=== PATIENT | female | born 1990 | race African-American/Black ===

== ENCOUNTER 2016-06-20 12:34 | Emergency (ER) | payer OTHER ==
[~2016-06-20] VITALS: Ht 170.2 cm; Wt 55.0 kg
[~2016-06-20 12:34] MED LIST: IBUP600 PO
[2016-06-20 12:35] VITALS: BP 100/59; PULSE 113; RESP 20; TEMP 97.4; O2SAT 99
== END 2016-06-20 15:01 | disposition left against medical advice (07) ==
LOC: NED 12:34
DX: K92.9 Disease of digestive system, unspecified (principal)
CPT/HCPCS: 99281

== ENCOUNTER 2016-11-18 22:53 | Emergency (ER) | payer OTHER ==
[~2016-11-18] VITALS: Ht 170.2 cm; Wt 55.0 kg
[2016-11-18 22:56] VITALS: BP 97/65; PULSE 105; RESP 16; TEMP 99.7; O2SAT 98
[2016-11-19 00:27] VITALS: BP 94/53; PULSE 92; RESP 18; O2SAT 100
[2016-11-19] MEDS ORDERED: SODIUM CHLOR 0.9% 1000 ML INJ 1,000 ML IV ONE (00:35)
[2016-11-19] MEDS ORDERED: ONDANSETRON HCL 4 MG/2 ML VIAL IVP ONE (00:45)
[2016-11-19] MEDS ORDERED: SODIUM CHLORIDE 0.9% FLUSH 10 ML FLUSH IVF PRN (00:45)
[2016-11-19] MEDS ORDERED: ZOFR4TAB3 SL (01:45)
--- NOTE | 2016-11-19 01:45 | PD ---
HPI . Nausea and vomiting Chief Complaint: GI Complaint Time Seen by Provider: 00:31 Travel History International Travel<30 days: No Contact w/Intl Traveler<30days: No Traveled to known affect area: No History of Present Illness HPI Patient presents with a chief complaint of nausea and vomiting associated with a fever. Onset was just today. No further history was initially available due to patient cooperation. PFSH Past Medical History ADHD: Yes Bipolar Disorder: Yes Depression: Yes Cancer: No Cardiovascular Problems: No Diabetes: No Diminished Hearing: No Psychiatric: Yes Immunizations Current: No Migraines: No Seizures: No Thyroid Disease: No Ulcer: No Tetanus Vaccination: < 5 Years Influenza Vaccination: No ?: Not LMP: 10/14/2016 Menopausal: No : 3 Para: 2 Miscarriage: 1 : 0 Past Surgical History Appendectomy: No Cholecystectomy: No Social History Alcohol Use: No Tobacco Use: No Substance Use: No Allergies-Medications (Allergen,Severity, Reaction): Coded Allergies: No Known Allergies (Verified , 11/19/16) Reported Meds & Prescriptions Reported Meds & Active Scripts Active No Active Prescriptions or Reported Medications Review of Systems ROS Limitations: Uncooperative General / Constitutional: Positive: Fever Gastrointestinal: Positive: Nausea, Vomiting Physical Exam Narrative GENERAL: The patient is lying in the position on her right side speaking in a very soft, whining voice and crying tears. SKIN: Warm and dry. HEAD: Atraumatic. Normocephalic. EYES: Pupils equal and round. Extraocular movements are intact. ENT: No nasal bleeding or discharge. Mucous membranes pink and moist. NECK: Trachea midline. Neck is supple. CARDIOVASCULAR: Regular rate and rhythm. RESPIRATORY: No accessory muscle use. ABDOMEN: Bowel sounds positive. Soft with some diffuse tenderness but no guarding or rebound. MUSCULOSKELETAL: No obvious deformities. No edema. NEUROLOGICAL: Awake and alert. No obvious cranial nerve deficits. Motor grossly within normal limits. Normal speech. PSYCHIATRIC: Inappropriate affect. Data Data Last Documented VS Vital Signs Date Time Temp Pulse Resp B/P Pulse Ox O2 Delivery O2 Flow Rate FiO2 11/19/16 00:27 92 18 94/53 100 Room Air 11/18/16 22:56 99.7 Orders Iv Access Insert/Monitor (11/19/16 00:35) Ondansetron Inj (Zofran Inj) (11/19/16 00:45) Sodium Chlor 0.9% 1000 Ml Inj (Ns 1000 M (11/19/16 00:35) Sodium Chloride 0.9% Flush (Ns Flush) (11/19/16 00:45) Ed Urine Pregnancytest Poc (11/19/16 00:35) [facility] Medical Decision Making Medical Screen Exam Complete: Yes Emergency Medical Condition: Yes Differential Diagnosis Differential diagnosis includes but is not limited to viral gastritis, food poisoning, pancreatitis, pneumonia, hepatitis, acute coronary syndrome, Narrative Course This patient presents with a one-day history of nausea and vomiting. She was initially unable to cooperate for physical exam. A urine test was ordered and was negative. She has been treated with IV fluids and IV antiemetics. Following treatment, the patient feels better. She was then able to cooperate for exam. Her exam was benign. Diagnosis Primary Impression: Nausea and vomiting Qualified Code: R11.2 - Non-intractable vomiting with nausea, unspecified vomiting type Patient Instructions: Acute Nausea and Vomiting (DC), General Instructions Med/Other Pt SpecificInfo: Prescription(s) given Scripts Ondansetron Odt (Zofran Odt)4 Mg Tab4 Mg SL Q6HR PRN (Nausea/Vomiting) #30 TAB Ref 0 Prov:Mirna Luna MD 11/19/16 Disposition: 01 DISCHARGE HOME Condition: Stable Mirna Luna MD Nov 19, 2016 01:45
== END 2016-11-19 02:04 | disposition home or self-care (01) ==
LOC: NEPE 22:53
DX: R11.2 Nausea with vomiting, unspecified (principal)
CPT/HCPCS: 84703; 96361; 96374; 99284; J2405; J7030

== ENCOUNTER 2016-12-23 16:00 | Emergency (ER) | payer OTHER ==
[~2016-12-23 16:00] MED LIST changes: -IBUP600 PO; +ZOFR4TAB3 SL
[2016-12-23 16:01] VITALS: BP 109/74; PULSE 92; RESP 20; TEMP 98.4; O2SAT 100
== END 2016-12-23 18:40 | disposition left against medical advice (07) ==
LOC: NED 16:00
DX: Z53.21 Procedure and treatment not carried out due to patient leaving prior to being seen by health care provider (principal)
CPT/HCPCS: 99281

== ENCOUNTER 2016-12-26 07:56 | Emergency (ER) | payer OTHER ==
[~2016-12-26] VITALS: Ht 170.2 cm; Wt 50.0 kg
[2016-12-26 07:57] VITALS: BP 105/65; PULSE 77; RESP 16; TEMP 98.4; O2SAT 98
--- NOTE | 2016-12-26 08:15 | PD ---
HPI Chief Complaint: Related Problem Time Seen by Provider: 08:15 Travel History International Travel<30 days: No Contact w/Intl Traveler<30days: No Traveled to known affect area: No History of Present Illness HPI 26-year-old female came to the emergency room with history of vaginal bleeding in the form of spotting and some pelvic cramps. Patient found out 1 week ago that she was . Based on her LMP she thinks she is 5 weeks . Patient is A1. She is otherwise a healthy person. Vital signs were stable. Her second lead to a miscarriage at 9 weeks. Patient is a smoker and continues to smoke through this . She has her baby with her who seems to be less than 1-year-old. [facility] Past Medical History Narrative Medical List of her past medical, surgical, social and family history is reviewed from the nursing note. ADHD: Yes Bipolar Disorder: Yes Depression: Yes Cancer: No Cardiovascular Problems: No Diabetes: No Diminished Hearing: No Psychiatric: Yes Immunizations Current: No Migraines: No Seizures: No Thyroid Disease: No Ulcer: No ?: Menopausal: No : 3 Para: 2 Miscarriage: 1 : 0 Past Surgical History Appendectomy: No Cholecystectomy: No Social History Alcohol Use: No Tobacco Use: No Substance Use: No Allergies-Medications (Allergen,Severity, Reaction): Coded Allergies: No Known Allergies (Verified , 12/29/16) Comments No known drug allergies. Reported Meds & Prescriptions Reported Meds & Active Scripts Active Vitamins 0.8 mg ( Multivit-Min W/Fe-FA) 1 Tab Tab 1 Tab PO DAILY Narrative Medication List of her home medications reviewed from the nursing note. Review of Systems Except as stated in HPI: all other systems reviewed are Neg Physical Exam Narrative GENERAL: Awake, alert, no obvious distress SKIN: Focused skin assessment warm/dry. HEAD: Atraumatic. Normocephalic. EYES: Pupils equal and round. No scleral icterus. No injection or drainage. ENT: No nasal bleeding or discharge. Mucous membranes pink and moist. NECK: Trachea midline. No JVD. CARDIOVASCULAR: Regular rate and rhythm. No murmur appreciated. RESPIRATORY: No accessory muscle use. Clear to auscultation. Breath sounds equal bilaterally. GASTROINTESTINAL: Abdomen soft, non-tender, nondistended. Hepatic and splenic margins not palpable. MUSCULOSKELETAL: No obvious deformities. No clubbing. No cyanosis. No edema. NEUROLOGICAL: Awake and alert. No obvious cranial nerve deficits. Motor grossly within normal limits. Normal speech. PSYCHIATRIC: Appropriate mood and affect; insight and judgment normal. Data Data Last Documented VS Orders Orders Beta Hcg (Quant/Titer) (12/26/16 08:20) Complete Blood Count With Diff (12/26/16 08:20) Basic Metabolic Panel (Bmp) (12/26/16 08:20) Type And Screen (12/26/16 08:20) Urinalysis - C+S If Indicated (12/26/16 08:20) Ed Urine Pregnancytest Poc (12/26/16 08:20) Ed Poc Ultrasound (12/26/16 08:20) Us Pelvis (Ques Pr/Ect)W Trans (12/26/16 ) Labs Laboratory Tests Test 12/26/16 08:30 White Blood Count 4.7 TH/MM3 Red Blood Count 4.44 MIL/MM3 Hemoglobin 13.1 GM/DL Hematocrit 39.8 % Mean Corpuscular Volume 89.6 FL Mean Corpuscular Hemoglobin 29.5 PG Mean Corpuscular Hemoglobin Concent 32.9 % Red Cell Distribution Width 14.5 % Platelet Count 247 TH/MM3 Mean Platelet Volume 8.2 FL Neutrophils (%) (Auto) 44.6 % Lymphocytes (%) (Auto) 42.5 % Monocytes (%) (Auto) 11.5 % Eosinophils (%) (Auto) 0.7 % Basophils (%) (Auto) 0.7 % Neutrophils # (Auto) 2.1 TH/MM3 Lymphocytes # (Auto) 2.0 TH/MM3 Monocytes # (Auto) 0.5 TH/MM3 Eosinophils # (Auto) 0.0 TH/MM3 Basophils # (Auto) 0.0 TH/MM3 CBC Comment DIFF FINAL Differential Comment Urine Color YELLOW Urine Turbidity CLEAR Urine pH 6.0 Urine Specific [place] 1.025 Urine Protein TRACE mg/dL Urine Glucose (UA) NEG mg/dL Urine Ketones TRACE mg/dL Urine Occult Blood MOD Urine Nitrite NEG Urine Bilirubin NEG Urine Urobilinogen LESS THAN 2.0 MG/DL Urine Leukocyte Esterase NEG Urine RBC 84 /hpf Urine WBC 4 /hpf Urine Squamous Epithelial Cells 4 /hpf Urine Bacteria RARE /hpf Urine Mucus FEW /lpf Microscopic Urinalysis Comment CULT NOT INDICATED Blood Urea Nitrogen 10 MG/DL Creatinine 0.74 MG/DL Random Glucose 77 MG/DL Calcium Level 8.6 MG/DL Sodium Level 137 MEQ/L Potassium Level 3.8 MEQ/L Chloride Level 106 MEQ/L Carbon Dioxide Level 24.8 MEQ/L Anion Gap 6 MEQ/L Estimat Glomerular Filtration Rate 116 ML/MIN Human Chorionic Gonadotropin, Quant 2107 MIU/ML MDM Medical Decision Making Medical Screen Exam Complete: Yes Emergency Medical Condition: Yes Medical Record Reviewed: Yes Differential Diagnosis Threatened , ectopic , implantation bleed Narrative Course 9:47 AM blood test results are within acceptable limits. Rh is positive. Beta hCG was little over 2100. I could not see a fetus or a gestational sac on my bedside ultrasound. Please refer to my procedure note. Awaiting for a formal ultrasound to be done to rule out ectopic and establish intrauterine . 12:06 PM still waiting for the ultrasound to be read. Procedures Procedure Narrative Emergency Department Pelvic ultrasound was performed with patient consent. The curvilinear probe was used in the transverse and sagittal views within the suprapubic region revealing no intrauterine . EKG Prior to Arrival: No Diagnosis Primary Impression: Threatened Referrals: Elisabeth Alexander MD 2 days Additional Instructions: Please call the OB was name and number been provided to you to get an appointment. You need a repeat blood test done in 48 hours to find out the beta hCG level. If they can see her in 48 hours into the test then please get it done through your OB. Otherwise he can come back to the emergency room and get the test done here. No intercourse, no douching, no tampon or anything in the vagina till the bleeding stops. Med/Other Pt SpecificInfo: No Change to Meds Scripts Multivit-Min W/Fe-FA ( Vitamins 0.8 mg) 1 Tab Tab 1 TAB PO DAILY, #30 Prov: Keri Harris MD 12/26/16 Disposition: 01 DISCHARGE HOME Condition: Stable Keri Harris MD Dec 26, 2016 08:15
[2016-12-26 08:52] LABS: AUTOMATED NEUTROPHIL # 2.1 TH/MM3 (1.8-7.7); BASOPHIL % 0.7 % (0.0-2.0); EOSINOPHIL % 0.7 % (0.0-4.0); HEMATOCRIT 39.8 % (35.0-46.0); HEMO FLAGS DIFF FINAL; LYMPH % 42.5 % (9.0-44.0); MEAN CELL VOLUME 89.6 FL (80.0-100.0); MEAN CORPUSCULAR HEMOGLOBIN 29.5 PG (27.0-34.0); MEAN CORPUSCULAR HGB CONC 32.9 % (32.0-36.0); MONO % 11.5 % (0.0-8.0); NEUT % 44.6 % (16.0-70.0); PLATELET COUNT 247 TH/MM3 (150-450); RED BLOOD COUNT 4.44 MIL/MM3 (4.00-5.30); RED CELL DISTRIBUTION WIDTH 14.5 % (11.6-17.2); WHITE BLOOD COUNT 4.7 TH/MM3 (4.0-11.0)
[2016-12-26 08:59] LABS: BACTERIA, URINE RARE /hpf; BLOOD, URINE MOD (NEG); COMMENT (UR) CULT NOT INDICATED; CULTURE IF INDICATED CULT NOT INDICATED; GLUCOSE,URINE NEG (NEG); KETONE, URINE TRACE mg/dL (NEG); MUCUS URINE FEW /lpf (OCC); NITRITE,URINE NEG (NEG); SQUAMOUS EPITHELIAL CELL URINE 4 /hpf (0-5); URINE COLOR YELLOW (YELLW/STRAW)
[2016-12-26 09:21] LABS: BICARBONATE 24.8 MEQ/L (21.0-32.0)
[2016-12-26 09:25] LABS: POTASSIUM 3.8 MEQ/L (3.5-5.1)
[2016-12-26] MEDS ORDERED: PREN1TAB63 PO (12:31)
--- NOTE | 2016-12-26 13:04 | RADRPT ---
EXAM DATE/TIME: 12/26/2016 10:40 [facility] COMPARISON: CT ABDOMEN & PELVIS W/O CONTRAST, December 01, 2014, 23:06. INDICATIONS : Pelvic pain and bleeding. LAB(S): Beta-hC MEDICAL HISTORY : . ADHD. Bipolar disorder. Schizophrenic. Depression. Tobacco use. SURGICAL HISTORY : None. ENCOUNTER: Initial ACUITY: 1 day PAIN SCORE: 3/10 LOCATION: Left pelvis. MEASUREMENTS: UTERUS: 9.5 x 7.8 x 4.7 cm ENDOMETRIAL STRIPE: 10 mm RIGHT OVARY: 3.2 x 2.4 x 1.5 cm LEFT OVARY: 5.2 x 3.7 x 3.2 cm FREE FLUID: Yes FINDINGS: UTERUS: 4-5 mm anechoic area in the endometrial cavity may be early gestational sac, too early for dates mery mates. RIGHT OVARY: Ovary contains no mass or significant cystic lesion. LEFT OVARY: 3.7 cm hyperechoic mass in the left ovary consistent with known dermoid MISCELLANEOUS: Small volume of free fluid. CONCLUSION: Tiny anechoic area in the endometrium Hadley Armstrong MD on December 26, 2016 at 12:58 Board Certified Radiologist. This report was verified electronically.
== END 2016-12-26 12:44 | disposition home or self-care (01) ==
LOC: NEPE 07:56
DX: O20.0 Threatened abortion (principal)
CPT/HCPCS: 76700; 76817; 80048; 81001; 84702; 84703; 85025; 86850; 86900; 86901

== ENCOUNTER 2016-12-29 12:26 | Emergency (ER) | payer OTHER ==
[~2016-12-29] VITALS: Ht 170.2 cm; Wt 48.0 kg
[~2016-12-29 12:26] MED LIST changes: +PREN1TAB63 PO; -ZOFR4TAB3 SL
[2016-12-29 12:29] VITALS: BP 98/50; PULSE 70; RESP 18; TEMP 98.7; O2SAT 99
--- NOTE | 2016-12-29 13:26 | PD ---
HPI Chief Complaint: Related Problem Time Seen by Provider: 13:15 Travel History International Travel<30 days: No Contact w/Intl Traveler<30days: No Traveled to known affect area: No History of Present Illness HPI 26-year-old female presents emergency department for hCG recheck. She was seen here 2 days ago and was told to follow up with OB or come back to emergency department after 48 hours of being seen. She says her abdominal cramping and vaginal bleeding stopped 2 days ago after she was seen. Denies fever, vomiting. Denies chest pain, shortness of breath, lightheadedness, dizziness. Symptoms are mild in severity. She has no other medical complaints. Has not taken any medications or tried any traumas to alleviate her symptoms. No known relieving or aggravating factors. Call to make an appointment with Dr. Alexander but was told to call back after her Medicaid was approved. No known allergies. No other modifying factors or associated signs and symptoms. PFSH Past Medical History ADHD: Yes Bipolar Disorder: Yes Depression: Yes Cancer: No Cardiovascular Problems: No Diabetes: No Diminished Hearing: No Psychiatric: Yes Immunizations Current: No Migraines: No Seizures: No Thyroid Disease: No Ulcer: No ?: Menopausal: No : 3 Para: 2 Miscarriage: 1 : 0 Past Surgical History Appendectomy: No Cholecystectomy: No Social History Alcohol Use: No Tobacco Use: Yes Substance Use: No Allergies-Medications (Allergen,Severity, Reaction): Coded Allergies: No Known Allergies (Verified , 12/29/16) Reported Meds & Prescriptions Reported Meds & Active Scripts Active Vitamins 0.8 mg ( Multivit-Min W/Fe-FA) 1 Tab Tab 1 Tab PO DAILY Review of Systems Except as stated in HPI: all other systems reviewed are Neg Physical Exam Narrative GENERAL: Well-nourished, well-developed black female patient, in no acute distress SKIN: Warm and dry. HEAD: Atraumatic. Normocephalic. EYES: Pupils equal and round. No scleral icterus. No injection or drainage. ENT: Mucosa pink and moist. Airway patent. NECK: Trachea midline. CARDIOVASCULAR: Regular rate and rhythm. No murmur appreciated. RESPIRATORY: No accessory muscle use. Clear to auscultation. Breath sounds equal bilaterally. GASTROINTESTINAL: Abdomen soft, non-tender, nondistended. Hepatic and splenic margins not palpable. Bowel sounds are active 4 quadrants. MUSCULOSKELETAL: No obvious deformities. No clubbing. No cyanosis. No edema. NEUROLOGICAL: Awake and alert. Oriented 3. No obvious cranial nerve deficits. Motor grossly within normal limits. Normal speech. PSYCHIATRIC: Appropriate mood and affect; insight and judgment normal. Data Data Last Documented VS Vital Signs Date Time Temp Pulse Resp B/P (MAP) Pulse Ox O2 Delivery O2 Flow Rate FiO2 12/29/16 12:29 98.7 70 18 98/50 (66) 99 Room Air Orders Orders Beta Hcg (Quant/Titer) (12/29/16 13:19) Labs Laboratory Tests Test 12/29/16 13:35 Human Chorionic Gonadotropin, Quant 2437 MIU/ML MDM Medical Decision Making Medical Screen Exam Complete: Yes Emergency Medical Condition: Yes Medical Record Reviewed: Yes Differential Diagnosis Medical clearance, , elevated hCG, decreased hCG, threatened miscarriage Narrative Course This is a 26-year-old female that was seen 2 days ago on December 26 with ultrasound they verified a 4-5 mm anechoic area in the endometrium of the uterus and was told to return in 48 hours for repeat hCG. Her hCG level on December 26 was 2107. Denies continued abdominal cramping or bleeding. Beta hCG ordered. 1425: HCG 2437. Instructed Patient to follow up with storekeeper helper. Instructed patient to follow up with primary care provider. Patient verbalizes understanding and agreement with treatment plan. Patient is medically cleared and stable for discharge. Discussed reasons to return to the emergency department. Patient agrees with treatment plan. The patients vital signs are stable and the patient is stable for outpatient follow-up and treatment. Patient discharged home, stable and in no acute distress. Diagnosis Primary Impression: Elevated serum hCG Referrals: Elisabeth Alexander MD [employer] Machine Operator Primary Care Physician Patient Instructions: First Trimester (ED), General Instructions, Threatened Miscarriage (ED) Departure Forms: Tests/Procedures, Work Release Enter return to work date: Dec 30, 2016 Additional Instructions: Follow-up with primary care provider Follow-up with storekeeper helper Return to the emergency department immediately if worsening of symptoms Med/Other Pt SpecificInfo: No Meds Exist/No RX given Disposition: 01 DISCHARGE HOME Condition: Stable Jaqueline Juan Dec 29, 2016 13:26
[2016-12-29 14:19] LABS: BETA HCG QUANT 2437 MIU/ML (0-5)
== END 2016-12-29 14:53 | disposition home or self-care (01) ==
LOC: NEPD 12:26
DX: Z32.01 Encounter for pregnancy test, result positive (principal); O99.341 Other mental disorders complicating pregnancy, first trimester; F31.9 Bipolar disorder, unspecified; F90.9 Attention-deficit hyperactivity disorder, unspecified type; Z72.0 Tobacco use; Z34.91 Encounter for supervision of normal pregnancy, unspecified, first trimester
CPT/HCPCS: 84702; 99281

== ENCOUNTER 2016-12-30 11:57 | Emergency (ER) | payer OTHER ==
[~2016-12-30] VITALS: Ht 170.2 cm; Wt 50.0 kg
[2016-12-30 12:00] VITALS: BP 117/77; PULSE 89; RESP 16; TEMP 98.4; O2SAT 99
--- NOTE | 2016-12-30 12:06 | PD ---
Physical Exam Date Seen by Provider: Dec 30, 2016 Time Seen by Provider: 12:05 Data Data Last Documented VS Vital Signs Date Time Temp Pulse Resp B/P (MAP) Pulse Ox O2 Delivery O2 Flow Rate FiO2 12/30/16 12:00 98.4 89 16 117/77 (90) 99 MDM Supervised Visit with MONSE: No Narrative Course 26-year-old 6 week (by dates) female presents to the ED for evaluation of "vaginal bleeding, like I have a period." Onset 20 minutes ago. Denies abdominal or vaginal pain. Vitals reviewed. Patient seen in triage, awaiting bed placement. Katelin Veloz Dec 30, 2016 12:06
--- NOTE | 2016-12-30 12:40 | PD ---
HPI Chief Complaint: Related Problem Time Seen by Provider: 12:25 Travel History International Travel<30 days: No Contact w/Intl Traveler<30days: No Traveled to known affect area: No History of Present Illness HPI The patient was seen and examined in the presence of the nurse. This patient complains of vaginal bleeding. Patient is not having any pelvic pain. No presyncopal symptoms. She is and was here 4 days ago with a titer of 2100 and ultrasound that showed a tiny 4-5 mm anechoic area which could be an early gestational sac but not definitive. She returned yesterday for a scheduled repeat beta titer which was 2400. So it increased but certainly didn' t double. She has not had her Medicaid approved yet so couldn't follow up with anyone. She called Dr. Reese her prior [employer] but was told to call back when her Medicaid is improved. In terms of no alleviating factors. Symptoms of no exacerbating factors. Duration of bleeding is one day. She was not bleeding when she was here yesterday. PFSH Past Medical History ADHD: Yes Bipolar Disorder: Yes Depression: Yes Cancer: No Cardiovascular Problems: No Diabetes: No Diminished Hearing: No Psychiatric: Yes Immunizations Current: No Migraines: No Seizures: No Thyroid Disease: No Ulcer: No ?: LMP: 11/22/16 Menopausal: No : 3 Para: 2 Miscarriage: 1 : 0 Past Surgical History Appendectomy: No Cholecystectomy: No Social History Alcohol Use: No Tobacco Use: Yes Substance Use: No Allergies-Medications (Allergen,Severity, Reaction): Coded Allergies: No Known Allergies (Verified , 12/29/16) Reported Meds & Prescriptions Reported Meds & Active Scripts Active Vitamins 0.8 mg ( Multivit-Min W/Fe-FA) 1 Tab Tab 1 Tab PO DAILY Review of Systems General / Constitutional: No: Fever Eyes: No: Visual changes HENT: No: Headaches Cardiovascular: No: Chest Pain or Discomfort Respiratory: No: Shortness of Breath Gastrointestinal: No: Abdominal Pain Genitourinary: Positive: Vaginal Bleeding, No: Dysuria Musculoskeletal: No: Pain Skin: No Rash Neurologic: No: Weakness Psychiatric: No: Depression Endocrine: No: Polydipsia Hematologic/Lymphatic: No: Easy Bruising Physical Exam Narrative GENERAL: Well-nourished, well-developed patient in no apparent distress. SKIN: Focused skin assessment reveals no rash and nodules. Skin is Warm and dry. HEAD: Atraumatic. Normocephalic. EYES: Pupils equal and round. No scleral icterus. No injection or drainage. ENT: No nasal bleeding or discharge. Mucous membranes pink and moist. NECK: Trachea midline. No JVD. CARDIOVASCULAR: Regular rate and rhythm. No murmur appreciated. RESPIRATORY: No accessory muscle use. Clear to auscultation. Breath sounds equal bilaterally. GASTROINTESTINAL: Abdomen soft, non-tender, nondistended. Hepatic and splenic margins not palpable. MUSCULOSKELETAL: No obvious deformities. No clubbing. No cyanosis. No edema. NEUROLOGICAL: Awake and alert. No obvious cranial nerve deficits. Motor grossly within normal limits. Normal speech. PSYCHIATRIC: Appropriate mood and affect; insight and judgment normal. Pelvic: Cervix is closed with no motion tenderness. Uterus does not seem enlarged. Scant blood in the vault. No adnexal tenderness Data Data Last Documented VS Vital Signs Date Time Temp Pulse Resp B/P (MAP) Pulse Ox O2 Delivery O2 Flow Rate FiO2 12/30/16 12:00 98.4 89 16 117/77 (90) 99 Orders Orders Beta Hcg (Quant/Titer) (12/30/16 12:36) Complete Blood Count With Diff (12/30/16 12:36) Iv Access Insert/Monitor (12/30/16 12:36) Labs Laboratory Tests Test 12/30/16 12:41 White Blood Count 4.2 TH/MM3 Red Blood Count 3.93 MIL/MM3 Hemoglobin 11.7 GM/DL Hematocrit 35.2 % Mean Corpuscular Volume 89.6 FL Mean Corpuscular Hemoglobin 29.8 PG Mean Corpuscular Hemoglobin Concent 33.2 % Red Cell Distribution Width 14.2 % Platelet Count 230 TH/MM3 Mean Platelet Volume 8.2 FL Neutrophils (%) (Auto) 40.9 % Lymphocytes (%) (Auto) 47.9 % Monocytes (%) (Auto) 9.7 % Eosinophils (%) (Auto) 1.0 % Basophils (%) (Auto) 0.5 % Neutrophils # (Auto) 1.7 TH/MM3 Lymphocytes # (Auto) 2.0 TH/MM3 Monocytes # (Auto) 0.4 TH/MM3 Eosinophils # (Auto) 0.0 TH/MM3 Basophils # (Auto) 0.0 TH/MM3 CBC Comment DIFF FINAL Differential Comment Human Chorionic Gonadotropin, Quant 2858 MIU/ML MDM Medical Decision Making Medical Screen Exam Complete: Yes Emergency Medical Condition: Yes Medical Record Reviewed: Yes Differential Diagnosis Spontaneous miscarriage, ectopic , dysfunctional uterine bleeding Narrative Course I have reviewed the patient's electronic medical record. As noted in the history of present illness, I have reviewed the previous studies from the last 2 visits IV placed CBC is normal Beta hCG is 2850, up from yesterday's 2400 Patient is asymptomatic Had a lengthy discussion with her and mother at bedside. Couldn't formally rule out ectopic but seems unlikely given that continually rising beta. She has no pelvic pain at all. She does have menstrual periods strength bleeding. May have spontaneous miscarriage. She develops pelvic pain she should return. I don't think repeating ultrasound a couple days later we'll show much different. She may need another one in a week or so however. She does have an OB appointment she tells me January 04 which is in 1 week We discussed pelvic rest Diagnosis Primary Impression: Vaginal bleeding in patient at less than 20 weeks gestation Additional Impression: Threatened Additional Instructions: The patient was advised to follow up with their physician and return if they worsen. Use pelvic rest measures Return for significant pelvic pain Med/Other Pt SpecificInfo: Other Disposition: DISCHARGE HOME Condition: Stable Rey Gaston MD Dec 30, 2016 12:40
[2016-12-30 13:01] LABS: AUTOMATED NEUTROPHIL # 1.7 TH/MM3 (1.8-7.7); BASOPHIL % 0.5 % (0.0-2.0); HEMATOCRIT 35.2 % (35.0-46.0); HEMO FLAGS DIFF FINAL; LYMPH % 47.9 % (9.0-44.0); MEAN CELL VOLUME 89.6 FL (80.0-100.0); MEAN CORPUSCULAR HEMOGLOBIN 29.8 PG (27.0-34.0); MEAN CORPUSCULAR HGB CONC 33.2 % (32.0-36.0); MONO % 9.7 % (0.0-8.0); NEUT % 40.9 % (16.0-70.0); PLATELET COUNT 230 TH/MM3 (150-450); RED BLOOD COUNT 3.93 MIL/MM3 (4.00-5.30); RED CELL DISTRIBUTION WIDTH 14.2 % (11.6-17.2); WHITE BLOOD COUNT 4.2 TH/MM3 (4.0-11.0)
[2016-12-30 13:32] LABS: BETA HCG QUANT 2858 MIU/ML (0-5)
== END 2016-12-30 14:09 | disposition home or self-care (01) ==
LOC: NEPD 11:57
DX: O46.91 Antepartum hemorrhage, unspecified, first trimester (principal); O20.0 Threatened abortion; O99.340 Other mental disorders complicating pregnancy, unspecified trimester; F90.9 Attention-deficit hyperactivity disorder, unspecified type; F31.9 Bipolar disorder, unspecified; O99.331 Smoking (tobacco) complicating pregnancy, first trimester
CPT/HCPCS: 84702; 85025; 99283

== ENCOUNTER 2017-06-07 18:06 | Observation (INO) | payer MEDICAID, OTHER ==
[~2017-06-07] VITALS: Ht 170.2 cm; Wt 49.0 kg
[2017-06-07] VITALS (9 sets, daily range): BP systolic 78–132; BP diastolic 42–82; PULSE 113–134; RESP 18–20; TEMP 98–98.8; O2SAT 98–100
[~2017-06-07 18:06] MED LIST changes: +LACTATED RINGER'S 1000 ML INJ 2,000 ML IV ONE; +LIDOCAINE HCL 1% PF 5 ML SYRINGE OTHER ONE; +OXYC1TAB63 PO; +PHENYLEPH/NS 1000 MCG/10 ML SYR IV ONE; +PHENYLEPHRINE HCL 10 MG/ML VIAL IV ONE; -PREN1TAB63 PO; +PROPOFOL 200 MG/20 ML AMP IV ONE; +ROCURONIUM INJ 50 MG/5 ML SYRINGE IV PUSH ONE; +SODIUM CHLOR 0.9% 250 ML INJ 250 ML IV ONE; +SODIUM CHLORIDE 0.9% 20 ML VIAL IV ONE; +STERILE WATER FOR INJECTION 20 ML VIAL IV ONE; +SUCCINYLCHOLINE CHLORIDE 200 MG/10 ML VIAL IV ONE; +ceFAZolin INJ 1,000 MG VIAL IV ONE
[2017-06-07] MEDS ORDERED: SODIUM CHLOR 0.9% 1000 ML INJ 1,000 ML IV SCH (18:25)
[2017-06-07] MEDS ORDERED: SODIUM CHLORIDE 0.9% FLUSH 10 ML FLUSH IVF PRN (18:30)
[2017-06-07] MEDS ORDERED: ONDANSETRON HCL 4 MG/2 ML VIAL IVP ONE (18:30)
--- NOTE | 2017-06-07 18:37 | PD ---
HPI Chief Complaint: General Weakness Time Seen by Provider: 18:23 Travel History International Travel<30 days: No Contact w/Intl Traveler<30days: No Traveled to known affect area: No History of Present Illness HPI 26-year-old -[place] female stated to be 7 weeks , is brought in with her with generalized weakness. Patient is a very poor historian , and appears somewhat delirious and dehydrated. It is reported the patient has not been eating or drinking today. She had vomiting this morning. Patient describes some generalized abdominal pain but nothing specific. History is very limited due to the patient's condition. Patient is asking for something to drink. She has no known drug allergies. PFSH Past Medical History ADHD: Yes Bipolar Disorder: Yes Depression: Yes Cancer: No Cardiovascular Problems: No Diabetes: No Diminished Hearing: No Endocrine: No Genitourinary: No Hepatitis: No Hiatal Hernia: No Immune Disorder: No Musculoskeletal: No Neurologic: No Psychiatric: Yes Reproductive: No Respiratory: No Immunizations Current: No Migraines: No Seizures: No Thyroid Disease: No Ulcer: No Tetanus Vaccination: < 5 Years Influenza Vaccination: No ?: LMP: 04/19/17 Menopausal: No : 3 Para: 2 Miscarriage: 1 : 0 Past Surgical History AICD: No Appendectomy: No Cholecystectomy: No Gynecologic Surgery: Yes (ovary sx) Joint Replacement: No Pacemaker: No Social History Alcohol Use: No Tobacco Use: Yes (10 cigarrette per day) Substance Use: No (pt denies) Allergies-Medications (Allergen,Severity, Reaction): Coded Allergies: No Known Allergies (Verified Allergy, Unknown, 06/07/17) Reported Meds & Prescriptions Reported Meds & Active Scripts Active No Active Prescriptions or Reported Medications Review of Systems ROS Limitations: Clinical Condition, Altered Mental Status, Poor Historian Except as stated in HPI: all other systems reviewed are Neg General / Constitutional: No: Fever Eyes: No: Visual changes HENT: No: Headaches Cardiovascular: No: Chest Pain or Discomfort Respiratory: No: Shortness of Breath Gastrointestinal: Positive: Nausea, Vomiting, Abdominal Pain Genitourinary: No: Dysuria Musculoskeletal: No: Pain Skin: No Rash Neurologic: No: Weakness Psychiatric: No: Depression Endocrine: No: Polydipsia Hematologic/Lymphatic: No: Easy Bruising Physical Exam Exam Limitations: Clinical Condition, Altered Mental Status, Poor Historian Narrative GENERAL: Patient appears somewhat obtunded but responds to questions with 1-2 word answers. She is asking for something to drink SKIN: Warm and dry. Normal color. Decreased turgor with tenting present. HEAD: Atraumatic. Normocephalic. EYES: Pupils equal and round. No scleral icterus. No injection or drainage. ENT: No nasal bleeding or discharge. Mucous membranes pink and dry. Pharynx is clear. Airways patent. NECK: Trachea midline. Supple. CARDIOVASCULAR: Regular tachycardia and normal rhythm. RESPIRATORY: No accessory muscle use. Clear to auscultation. Breath sounds equal bilaterally. GASTROINTESTINAL: Abdomen soft, no specific complaints of tenderness, nondistended. Hepatic and splenic margins not palpable. MUSCULOSKELETAL: Extremities without clubbing, cyanosis, or edema. No obvious deformities. NEUROLOGICAL: Awake and and will answer questions with one-word answers. No obvious cranial nerve deficits. Motor grossly within normal limits. Five out of 5 muscle strength in the arms and legs. Normal speech. Data Data Last Documented VS Vital Signs Date Time Temp Pulse Resp B/P (MAP) Pulse Ox O2 Delivery O2 Flow Rate FiO2 06/07/17 18:30 20 98 Room Air 06/07/17 18:25 98.0 115 Orders Orders Electrocardiogram (06/07/17 18:25) Complete Blood Count With Diff (06/07/17 18:) Comprehensive Metabolic Panel (06/07/17 18:25) Magnesium (Mg) (06/07/17 18:25) Urinalysis - C+S If Indicated (06/07/17 18:25) Blood Glucose (06/07/17 18:25) Ecg Monitoring (06/07/17 18:) Iv Access Insert/Monitor (06/07/17 18:) Oximetry (06/07/17 18:25) Ondansetron Inj (Zofran Inj) (06/07/17 18:30) Sodium Chloride 0.9% Flush (Ns Flush) (06/07/17 18:30) Sodium Chlor 0.9% 1000 Ml Inj (Ns 1000 M (06/07/17 18:25) Lactic Acid (06/07/17 18:25) Blood Culture (06/07/17 18:25) Cath For Specimen (06/07/17 18:25) Chest, Single Ap (06/07/17 ) Influenzae A/B Antigen (06/07/17 19:00) Drug Screen, Random Urine (06/07/17 19:01) MDM Medical Decision Making Medical Screen Exam Complete: Yes Emergency Medical Condition: Yes Medical Record Reviewed: Yes Differential Diagnosis Nausea vomiting. . Weakness. Dehydration. Electrolyte imbalance. Narrative Course Patient does not appear medically stable at time of exam, with tachycardia and hypotension noted. Patient appears severely dehydrated. Labs ordered including CBC, CMP, lactic acid, magnesium, urinalysis, urine drug screen, serum hCG, blood cultures 2, and rapid influenza. Chest x-ray and EKG ordered. IV access is obtained, and patient is given 2 L normal saline bolus, 4 mg IV Zofran. 1900 hrs. Scripts No Active Prescriptions or Reported Meds Condition: Stable Len William Jun 07, 2017 18:37
--- NOTE | 2017-06-07 19:39 | PD ---
Physical Exam Time Seen by Provider: 19:30 Data Data Last Documented VS Vital Signs Date Time Temp Pulse Resp B/P (MAP) Pulse Ox O2 Delivery O2 Flow Rate FiO2 06/07/17 21:28 98.8 124 20 132/82 99 06/07/17 20:57 Room Air Orders Orders Electrocardiogram (06/07/17 18:25) Complete Blood Count With Diff (06/07/17 18:25) Comprehensive Metabolic Panel (06/07/17 18:25) Magnesium (Mg) (06/07/17 18:25) Urinalysis - C+S If Indicated (06/07/17 18:25) Blood Glucose (06/07/17 18:25) Ecg Monitoring (06/07/17 18:25) Iv Access Insert/Monitor (06/07/17 18:) Oximetry (06/07/17 18:25) Ondansetron Inj (Zofran Inj) (06/07/17 18:30) Sodium Chloride 0.9% Flush (Ns Flush) (06/07/17 18:30) Sodium Chlor 0.9% 1000 Ml Inj (Ns 1000 M (06/07/17 18:25) Lactic Acid (06/07/17 18:25) Blood Culture (06/07/17 18:25) Cath For Specimen (06/07/17 18:25) Influenzae A/B Antigen (06/07/17 19:00) Drug Screen, Random Urine (06/07/17 19:01) Ed Urine Pregnancytest Poc (06/07/17 19:15) Us Pelvis (Ques Preg/Ectopic) (06/07/17 ) Type And Screen (06/07/17 20:58) Red Blood Cells (Rbc) (06/07/17 21:00) Blood Product Administration (06/07/17 21:00) Sodium Chlor 0.9% 250 Ml Inj (Ns 250 Ml (06/07/17 21:00) Admit Order (Ed Use Only) (06/07/17 21:29) Beta Hcg (Quant/Titer) (06/07/17 20:45) Labs Laboratory Tests Test 06/07/17 20:45 White Blood Count 21.3 TH/MM3 Red Blood Count 2.27 MIL/MM3 Hemoglobin 6.8 GM/DL Hematocrit 20.6 % Mean Corpuscular Volume 90.7 FL Mean Corpuscular Hemoglobin 30.0 PG Mean Corpuscular Hemoglobin Concent 33.1 % Red Cell Distribution Width 13.6 % Platelet Count 200 TH/MM3 Mean Platelet Volume 8.9 FL Neutrophils (%) (Auto) 84.5 % Lymphocytes (%) (Auto) 11.9 % Monocytes (%) (Auto) 3.2 % Eosinophils (%) (Auto) 0.0 % Basophils (%) (Auto) 0.4 % Neutrophils # (Auto) 18.0 TH/MM3 Lymphocytes # (Auto) 2.5 TH/MM3 Monocytes # (Auto) 0.7 TH/MM3 Eosinophils # (Auto) 0.0 TH/MM3 Basophils # (Auto) 0.1 TH/MM3 CBC Comment DIFF FINAL Differential Comment Blood Urea Nitrogen 15 MG/DL Creatinine 1.65 MG/DL Random Glucose 193 MG/DL Total Protein 5.7 GM/DL Albumin 2.8 GM/DL Calcium Level 7.5 MG/DL Magnesium Level 2.0 MG/DL Alkaline Phosphatase 50 U/L Aspartate Amino Transf (AST/SGOT) 26 U/L Alanine Aminotransferase (ALT/SGPT) 19 U/L Total Bilirubin LESS THAN 0.1 MG/DL Sodium Level 143 MEQ/L Potassium Level 4.1 MEQ/L Chloride Level 110 MEQ/L Carbon Dioxide Level 14.2 MEQ/L Anion Gap 19 MEQ/L Estimat Glomerular Filtration Rate 46 ML/MIN Lactic Acid Level 12.4 mmol/L Human Chorionic Gonadotropin, Quant 6891 MIU/ML [facility] Medical Record Reviewed: Yes Supervised Visit with MONSE: No Narrative Course 193: I assumed care of this patient at shift change. Please see previous providers notes for complete history of present illness. In summary this is a whose last menstrual period was April 19. She presents for evaluation of generalized weakness, myalgias. Symptoms started this morning. She reports associated nausea, vomiting, diarrhea, with 5 episodes of nonbloody nonbilious emesis and 3 episodes of watery stool. She endorses mild abdominal pain secondary to vomiting. She reports that she has had a slight cough over the past few days. She believes that she had a fever today but she did not check her temperature. She denies dysuria, flank pain, vaginal bleeding, vaginal discharge, sore throat, rash, IV drug use. She reports that last week she was treated for a urinary tract infection at an outside emergency room with an unknown antibiotic. Urine test is positive. Ultrasound reveals free fluid in the abdomen concerning for ruptured ectopic . Dr. Caldera the on-call technical systems architect came down to immediately evaluate the patient. The patient will be admitted to technical systems architect Dr. Bejarano and will go immediately to the OR. 2 units of emergency release blood was ordered. Upon reexamination the patient's blood pressure is improved to 133/80. Lab work pending at the time of the patient's transfer to the OR. Physician Communication Physician Communication Dr. Hester spoke with the on-call OB hospitalist Dr. Caldera about the concerning ultrasound findings and Dr. Caldera will come down immediately to see the patient. Diagnosis Primary Impression: Ruptured ectopic Admitting Information Admitting Physician Requests: Admit Scripts No Active Prescriptions or Reported Meds Condition: Stable Joaquin Soriano Jun 07, 2017 19:39
[2017-06-07] MEDS ORDERED: SODIUM CHLOR 0.9% 250 ML INJ 250 ML IV ONE (21:00)
[2017-06-07 21:44] LABS: ALBUMIN 2.8 GM/DL (3.4-5.0); AST (GOT) 26 U/L (15-37); BICARBONATE 14.2 MEQ/L (21.0-32.0); BLOOD UREA NITROGEN 15 MG/DL (7-18); CALCIUM 7.5 MG/DL (8.5-10.1); CHLORIDE 110 MEQ/L (98-107); CREATININE 1.65 MG/DL (0.50-1.00); GLOMERULAR FILTRATION RATE 46 ML/MIN (>89); GLUCOSE,RANDOM 193 MG/DL (74-106); SODIUM (NA) 143 MEQ/L (136-145)
[2017-06-07 21:45] LABS: ALT (GPT) 19 U/L (10-53)
[2017-06-07 21:48] LABS: ALKALINE PHOSPHATASE 50 U/L (45-117); TOTAL BILIRUBIN ADULT LESS THAN 0.1 MG/DL (0.2-1.0); TOTAL PROTEIN 5.7 GM/DL (6.4-8.2)
--- NOTE | 2017-06-07 21:50 | HHI.HP ---
HPI Chief Complaint abdominal pain Date Seen: Jun 07, 2017 Time Seen: 21:42 Travel History International Travel<30 Days: No Contact w/Intl Traveler<30Days: No Known Affected Area: No History of Present Illness HPI pt. is a 26 y/o @ ~ 8 weeks present w/ c/o abdom pain. pt. states thru out day has been having severe abdominal pain that has worsened thruout the day. pt. states she also was passing out and had had time staying awake. pt. denies sob/cp, no fever/chills. seen in ed and have u/s show free blood in abdomen and pelvis. Weeks Gestation: 8 Para: 2 : 5 Miscarriage: 2 History Past Medical History Medical History: Denies Significant Hx Past Surgical History Narrative Surgical pt. s/p dx lap w/ excision of dermoid cyst 03/18 Family History Family History: Negative Social History Alcohol Use: No Tobacco Use: Yes Substance Abuse: No Allergies-Medications (Allergen,Severity, Reaction): Coded Allergies: No Known Allergies (Verified Allergy, Unknown, 06/07/17) Home Meds Discontinued Scripts Oxycodone HCl/Acetaminophen (Oxycodone-Acetaminophen 5-325) 5 Mg-325 Mg Tablet, 1 TAB PO Q4H Y for pain, #30 TAB 0 Refills Prov:Hadley De La Rosa MD 03/13/17 Review of Systems Except as stated in HPI: all other systems reviewed are Neg Physical Exam Vital Signs Date Time Temp Pulse Resp B/P (MAP) Pulse Ox O2 Delivery O2 Flow Rate FiO2 06/07/17 21:28 98.8 124 20 132/82 99 06/07/17 18:30 20 98 Room Air 06/07/17 18:25 98.0 115 18 78/46 (57) 98 Room Air 06/07/17 18:25 114 17 97 Room Air Narrative GENERAL: Well-nourished, well-developed patient. SKIN: Warm and dry. HEAD: Normocephalic and atraumatic. EYES: No scleral icterus. No injection or drainage. ENT: No nasal drainage noted. Mucous membranes dry. Airway patent. NECK: Supple, trachea midline. No JVD. CARDIOVASCULAR: Regular rate and rhythm without murmurs, gallops, or rubs. RESPIRATORY: Breath sounds equal bilaterally. No accessory muscle use. ABDOMEN/GI: Abdomen soft, -BS, tender, +rebound/guarding EXTREMITIES: No cyanosis or edema. BACK: Nontender without obvious deformity. No CVA tenderness. NEUROLOGICAL: Awake and alert. Motor and sensory grossly within normal limits. Five out of 5 muscle strength in all muscle groups. Normal speech. Caprini VTE Risk Assessment Caprini VTE Risk Assessment: No/Low Risk (score <= 1) Caprini Risk Assessment Model Point Value = 1 Point Value = 2 Point Value = 3 Point Value = 5 Age 41-60 Minor surgery BMI > 25 kg/m2 Swollen legs Varicose veins or History of unexplained or recurrent spontaneous Oral contraceptives or hormone replacement Sepsis (< 1 month) Serious lung disease, including pneumonia (< 1 month) Abnormal pulmonary function Acute myocardial infarction Congestive heart failure (< 1 month) History of inflammatory bowel disease Medical patient at bed rest Age 61-74 Arthroscopic surgery Major open surgery (> 45 min) Laparoscopic surgery (> 45 min) Malignancy Confined to bed (> 72 hours) Immobilizing plaster cast Central venous access Age >= 75 History of VTE Family history of VTE Factor V Leiden Prothrombin [id number] Lupus anticoagulant Anticardiolipin antibodies Elevated serum homocysteine Heparin-induced thrombocytopenia Other congenital or acquired thrombophilia Stroke (< 1 month) Elective arthroplasty Hip, pelvis, or leg fracture Acute spinal cord injury (< 1 month) Prophylaxis Regimen Total Risk Factor Score Risk Level Prophylaxis Regimen 0-1 Low Early ambulation 2 Moderate Order ONE of the following: *Sequential Compression Device (SCD) *Heparin 5000 units SQ BID 3-4 Higher Order ONE of the following medications: *Heparin 5000 units SQ TID *Enoxaparin/Lovenox 40 mg SQ daily (WT < 150 kg, CrCl > 30 mL/min) *Enoxaparin/Lovenox 30 mg SQ daily (WT < 150 kg, CrCl > 10-29 mL/min) *Enoxaparin/Lovenox 30 mg SQ BID (WT < 150 kg, CrCl > 30 mL/min) AND/OR *Sequential Compression Device (SCD) 5 or more Highest Order ONE of the following medications: *Heparin 5000 units SQ TID (Preferred with Epidurals) *Enoxaparin/Lovenox 40 mg SQ daily (WT < 150 kg, CrCl > 30 mL/min) *Enoxaparin/Lovenox 30 mg SQ daily (WT < 150 kg, CrCl > 10-29 mL/min) *Enoxaparin/Lovenox 30 mg SQ BID (WT < 150 kg, CrCl > 30 mL/min) AND *Sequential Compression Device (SCD) Data Data Vital Signs Reviewed: Yes Orders Orders Electrocardiogram (06/07/17 18:25) Complete Blood Count With Diff (06/07/17 18:25) Comprehensive Metabolic Panel (06/07/17 18:25) Magnesium (Mg) (06/07/17 18:25) Urinalysis - C+S If Indicated (06/07/17 18:25) Blood Glucose (06/07/17 18:25) Ecg Monitoring (06/07/17 18:) Iv Access Insert/Monitor (06/07/17 18:) Oximetry (06/07/17 18:25) Ondansetron Inj (Zofran Inj) (06/07/17 18:30) Sodium Chloride 0.9% Flush (Ns Flush) (06/07/17 18:30) Sodium Chlor 0.9% 1000 Ml Inj (Ns 1000 M (06/07/17 18:25) Lactic Acid (06/07/17 18:25) Blood Culture (06/07/17 18:25) Cath For Specimen (06/07/17 18:25) Chest, Single Ap (06/07/17 ) Influenzae A/B Antigen (06/07/17 19:00) Drug Screen, Random Urine (06/07/17 19:01) Beta Hcg (Quant/Titer) (06/07/17 19:15) Ed Urine Pregnancytest Poc (06/07/17 19:15) Us Pelvis (Ques Preg/Ectopic) (06/07/17 ) Type And Screen (06/07/17 20:58) Red Blood Cells (Rbc) (06/07/17 21:00) Blood Product Administration (06/07/17 21:00) Sodium Chlor 0.9% 250 Ml Inj (Ns 250 Ml (06/07/17 21:00) Admit Order (Ed Use Only) (06/07/17 21:29) Labs Laboratory Tests Test 06/07/17 20:45 Date/Time Source Procedure Growth Status 06/07/17 20:50 Blood Peripheral Aerobic Blood Culture Pending Received 06/07/17 20:50 Blood Peripheral Anaerobic Blood Culture Pending Received Assessment/Plan Assessment and Plan 26 y/o @ ~ 8 weeks w/ most prob ruptured ectopic preg. condition d/w pt. dx lap, possible ex lap, possible salpingect/salpingostomy, possible oophorectomy d/w pt. risk/benefits and alternatives d/w pt. pt. give verbal understanding and consent w/ u/s tech as witness. pt. to go to or w/ letty leyva. d/w letty leyva. Keegan Caldera Jr., MD Jun 07, 2017 21:50
[2017-06-07] MEDS ORDERED: HYDROmorphone HCL PF 2 MG/ML VIAL IV PRN (22:00)
[2017-06-07] MEDS ORDERED: LACTATED RINGER'S 1000 ML INJ 250 ML IV PRN (22:00)
[2017-06-07] MEDS ORDERED: ONDANSETRON HCL 4 MG/2 ML VIAL IV PUSH PRN (22:00)
[2017-06-07] MEDS ORDERED: ceFAZolin 1,000 MG/NS 100 ML IV ONE ×2 (22:00)
[2017-06-07] MEDS ORDERED: CITRIC ACID-SODIUM CITRATE LIQ 30 ML UDC PO ONE (22:00)
[2017-06-07] MEDS ORDERED: MIDAZOLAM HCL 2 MG/2 ML VIAL ONE (22:18)
[2017-06-07] MEDS ORDERED: fentaNYL CITRATE 250 MCG/5 ML AMP ONE (22:18)
[2017-06-07] MEDS ORDERED: BUPIVACAINE/EPINEPHRINE 0.5% PF 30 ML VIAL ONE (22:25)
[2017-06-07 22:28] LABS: BASOPHIL # 0.1 TH/MM3 (0-0.2); BASOPHIL % 0.4 % (0.0-2.0); LYMPH % 11.9 % (9.0-44.0); LYMPHOCYTE # 2.5 TH/MM3 (1.0-4.8); MEAN CELL VOLUME 90.7 FL (80.0-100.0); MEAN CORPUSCULAR HGB CONC 33.1 % (32.0-36.0); MEAN PLATELET VOLUME 8.9 FL (7.0-11.0); MONO % 3.2 % (0.0-8.0); MONOCYTE # 0.7 TH/MM3 (0-0.9); NEUT % 84.5 % (16.0-70.0); PLATELET COUNT 200 TH/MM3 (150-450); RED BLOOD COUNT 2.27 MIL/MM3 (4.00-5.30); RED CELL DISTRIBUTION WIDTH 13.6 % (11.6-17.2); WHITE BLOOD COUNT 21.3 TH/MM3 (4.0-11.0)
[2017-06-07 22:32] LABS: HEMATOCRIT 20.6 % (35.0-46.0); HEMOGLOBIN 6.8 GM/DL (11.6-15.3)
[2017-06-07 23:25] LABS: BASOPHIL % 0.2 % (0.0-2.0); HEMATOCRIT 30.1 % (35.0-46.0); HEMOGLOBIN 10.4 GM/DL (11.6-15.3); LYMPH % 9.6 % (9.0-44.0); LYMPHOCYTE # 2.3 TH/MM3 (1.0-4.8); MEAN CELL VOLUME 88.8 FL (80.0-100.0); MEAN CORPUSCULAR HEMOGLOBIN 30.7 PG (27.0-34.0); MEAN CORPUSCULAR HGB CONC 34.6 % (32.0-36.0); MEAN PLATELET VOLUME 8.5 FL (7.0-11.0); MONO % 6.1 % (0.0-8.0); MONOCYTE # 1.4 TH/MM3 (0-0.9); NEUT % 84.1 % (16.0-70.0); PLATELET COUNT 88 TH/MM3 (150-450); RED BLOOD COUNT 3.39 MIL/MM3 (4.00-5.30); RED CELL DISTRIBUTION WIDTH 13.5 % (11.6-17.2); WHITE BLOOD COUNT 23.7 TH/MM3 (4.0-11.0)
[2017-06-07] MEDS ORDERED: SUGAMMADEX SODIUM 200 MG/2 ML VIAL IV PUSH ONE (23:34)
--- NOTE | 2017-06-07 23:40 | EKG ---
Date Performed: 06/07/2017 Time Performed: 18:55:34 PTAGE: 26 years EKG: SINUS TACHYCARDIA MODERATE ST DEPRESSION ABNORMAL ECG PREVIOUS TRACING : 12/02/2008 19.58 Compared to prior tracing, rate has increased with ST wilkins ges which may be rate induced DOCTOR: Santiago Mcgregor Interpretating Date/Time 06/07/2017 23:39:28
[2017-06-07 23:54] LABS: BURR CELLS 1+ (NORMAL)
[2017-06-07] MEDS ORDERED: LACTATED RINGER'S 1000 ML INJ 1,000 ML IV SCH (23:54)
--- NOTE | 2017-06-07 23:54 | PD.OP ---
Operative Report Date of Surgery: Jun 07, 2017 Preoperative Diagnosis: (1) Ruptured ectopic Postoperative Diagnosis: (1) Ruptured ectopic Procedure: operative laparoscopy with right salpingectomy Anesthesia: general Story Surgeon: Hadley De La Rosa Silviculturist(s): Morales Day MS3 Hadley De La Rosa MD Jun 07, 2017 23:54
[2017-06-08] MEDS ORDERED: diphenhydrAMINE HCL 25 MG CAP PO PRN
[2017-06-08] MEDS ORDERED: oxyCODONE/ACETAMINOPHEN 5 MG/325 MG TAB PO PRN ×2
[2017-06-08] MEDS ORDERED: ONDANSETRON HCL 4 MG/2 ML VIAL IVP PRN
[2017-06-08] MEDS ORDERED: SODIUM CHLORIDE 0.9% FLUSH 10 ML FLUSH IV FLUSH PRN
[2017-06-08] MEDS ORDERED: MEPERIDINE HCL 25 MG/ML VIAL ONE (00:01)
[2017-06-08] MEDS ORDERED: DO NOT ADM ANY ANTICOAGULANT DRUGS PRN (00:15)
--- NOTE | 2017-06-08 00:50 | RADRPT ---
EXAM DATE/TIME: 06/07/2017 20:39 [facility] COMPARISON: US PELVIS (QUEST PREG/ECTOPIC) W/TRANSVAG, December 26, 2016, 10:40. INDICATIONS : Pelvic pain with . LAB(S): Beta-hC MEDICAL HISTORY : . Miscarriage x 2. Bipolar disorder. Depression. ADHD. SURGICAL HISTORY : Dermoid cyst removed from left ovary ENCOUNTER: Initial ACUITY: 1 day PAIN SCORE: 9/10 LOCATION: Bilateral pelvis MEASUREMENTS: UTERUS: 7.7 x 4.8 x 3.6 cm ENDOMETRIAL STRIPE: 4 mm RIGHT OVARY: 3.7 x 2.1 x 1.3 cm LEFT OVARY: 3.2 x 1.9 x 2.0 cm FREE FLUID: Yes Large amount of complex and simple fluid throughout abdomen. CROWN RUMP LENGTH: Non visualized. = WKS DAYS FHR: Non visualized. BPM FINDINGS: UTERUS: The myometrium has homogeneous echotexture without mass. RIGHT OVARY: Ovary contains no mass or significant cystic lesion. LEFT OVARY: Ovary contains no mass or significant cystic lesion. MISCELLANEOUS: Small to moderate nonspecific free fluid. Patient declined transvaginal portion of the study. CONCLUSION: Nonspecific free fluid. Ultrasound appearance of the uterus and ovaries within normal limits. No IUP or ectopic demonstrated. Hadley Hankins MD on June 08, 2017 at 0:46 Board Certified Radiologist. This report was verified electronically.
[2017-06-08] MEDS: LACTATED RINGER'S 1000 ML INJ 1,000 ML IV SCH ×3 (01:41→06:00)
[2017-06-08 01:45] VITALS: BP 84/52; PULSE 89; RESP 16; TEMP 97.9; O2SAT 98
[2017-06-08] MEDS: IBUPROFEN 600 MG TAB PO PRN ×2 (02:34→08:49)
[2017-06-08 02:45] VITALS: BP 122/80; PULSE 96; RESP 18; O2SAT 97
[2017-06-08 05:40] VITALS: BP 98/53; PULSE 76; RESP 16; TEMP 99.2; O2SAT 100
[2017-06-08 06:19] LABS: AUTOMATED NEUTROPHIL # 10.9 TH/MM3 (1.8-7.7); BASOPHIL % 0.2 % (0.0-2.0); HEMATOCRIT 21.6 % (35.0-46.0); HEMOGLOBIN 7.6 GM/DL (11.6-15.3); LYMPH % 13.6 % (9.0-44.0); LYMPHOCYTE # 1.9 TH/MM3 (1.0-4.8); MEAN CELL VOLUME 86.6 FL (80.0-100.0); MEAN CORPUSCULAR HEMOGLOBIN 30.7 PG (27.0-34.0); MEAN CORPUSCULAR HGB CONC 35.4 % (32.0-36.0); MEAN PLATELET VOLUME 8.5 FL (7.0-11.0); MONO % 7.2 % (0.0-8.0); PLATELET COUNT 104 TH/MM3 (150-450); RED BLOOD COUNT 2.49 MIL/MM3 (4.00-5.30); RED CELL DISTRIBUTION WIDTH 13.7 % (11.6-17.2); WHITE BLOOD COUNT 13.8 TH/MM3 (4.0-11.0)
[2017-06-08 06:46] LABS: ALBUMIN 2.1 GM/DL (3.4-5.0); BICARBONATE 23.3 MEQ/L (21.0-32.0); CALCIUM 6.4 MG/DL (8.5-10.1); CALCIUM-PROTEIN CORRECTED 7.7 MG/DL (8.5-10.1); CREATININE 0.83 MG/DL (0.50-1.00); TOTAL BILIRUBIN ADULT 0.4 MG/DL (0.2-1.0); TOTAL PROTEIN 4.5 GM/DL (6.4-8.2)
[2017-06-08 08:00] VITALS: BP 89/42; PULSE 80; RESP 15; TEMP 98.1; O2SAT 100
[2017-06-08] MEDS ORDERED: OXYC1TAB63 PO (08:07)
--- NOTE | 2017-06-08 08:08 | HHI.DCPOC ---
Discharge Care Plan Diagnosis: (1) Ruptured ectopic Report Symptoms to Your Doctor -Temperature above 100.5 degrees -Redness, of incision or excessive or foul smelling drainage -Unusual pain or calf pain -Increased vaginal bleeding -Painful or difficulty urinating -Feelings of extreme sadness or anxiety after 2 weeks Goals to Promote Your Health * To prevent worsening of your condition and complications * To maintain your health at the optimal level Directions to Meet Your Goals Take your medications as prescribed Follow your dietary instruction Follow activity as directed Ensure plenty of rest for recovery Drink fluids for hydration Keep your appointments as scheduled Take your immunizations and boosters as scheduled If your symptoms worsen call your PCP, if no PCP go to Urgent Care Center or Emergency Room Smoking is Dangerous to Your Health. Avoid second hand smoke Call the 24-hour crisis hotline for domestic abuse at Hadley De La Rosa MD Jun 08, 2017 08:08
--- NOTE | 2017-06-08 08:19 | HHI.OB ---
Subjective Post Operative Day: 1 Remarks doing well sore but feels better Objective Vitals/I&O Vital Signs Date Time Temp Pulse Resp B/P (MAP) Pulse Ox O2 Delivery O2 Flow Rate FiO2 06/08/17 05:40 99.2 76 16 98/53 (68) 100 06/08/17 02:45 96 18 122/80 (94) 97 06/08/17 01:45 97.9 89 16 84/52 (63) 98 06/08/17 01:00 77 14 91/51 (64) 100 Nasal Cannula 3 06/08/17 00:45 83 14 91/55 (67) 100 Nasal Cannula 4 06/08/17 00:30 99 19 93/56 (68) 97 Nasal Cannula 4 06/08/17 00:15 97.7 100 19 98/52 (67) 100 Simple Mask 8 06/07/17 22:29 06/07/17 22:27 98.8 113 18 100/56 100 06/07/17 22:13 98.8 114 18 106/47 100 06/07/17 21:58 98.7 113 18 91/50 100 06/07/17 21:43 98.7 124 20 87/49 100 06/07/17 21:28 98.8 124 20 132/82 99 06/07/17 20:57 134 20 81/42 (55) 100 Room Air 06/07/17 19:10 121 20 112/57 (75) 100 Room Air 06/07/17 18:30 20 98 Room Air 06/07/17 18:25 98.0 115 18 78/46 (57) 98 Room Air 06/07/17 18:25 114 17 97 Room Air Intake & Output 06/08/17 06/08/17 07:00 19:00 Intake Total 1800 ml Output Total 700 ml Balance 1100 ml Intake Packed Cells 800 ml Blood Product IV Normal Saline Flush 200 ml Other 800 ml Output Urine Total 600 ml Estimated Blood Loss 100 ml # Voids 1 Result Diagram: 06/08/17 0555 06/08/17 0505 Objective Remarks GENERAL: Well-nourished, well-developed patient. pulse 80. ABDOMEN/GI: Abdomen soft, non-tender, bowel sounds present. Incision: Clean, dry and intact. Fundus: Firm, non-tender at umbilicus. GENITOURINARY: Light to moderate bleeding. EXTREMITIES: No cyanosis or edema, non-tender, without signs of DVT. Medications and IVs Current Medications Medications (Trade) Dose Ordered Sig/Lucas Route Start Time Stop Time Status Last Admin (NS Flush) 2 ml UNSCH PRN IVF 06/07/17 18:30 06/07/17 18:40 Sodium Chloride 250 ml @ 15 mls/hr ONCE ONCE IV 06/07/17 21:00 06/08/17 13:39 06/07/17 21:26 Lactated Ringer's 1,000 ml @ 250 mls/hr Q4H IV 06/07/17 22:00 06/08/17 02:35 Lactated Ringer's 250 ml @ 250 mls/hr Q1H PRN IV 06/07/17 22:00 (Zofran Inj) 4 mg Q4H PRN IV PUSH 06/07/17 22:00 (Dilaudid Pf Inj) 1 mg Q2H PRN IV 06/07/17 22:00 Lactated Ringer's 1,000 ml @ 83 mls/hr Q12H3M IV 06/07/17 23:54 (NS Flush) 2 ml UNSCH PRN IV FLUSH 06/08/17 00:00 (NS Flush) 2 ml BID IV FLUSH 06/08/17 09:00 (Motrin) 600 mg Q6H PRN PO 06/08/17 00:00 06/08/17 02:34 (Percocet 5-325 Mg) 1 tab Q4H PRN PO 06/08/17 00:00 (Percocet 5-325 Mg) 2 tab Q4H PRN PO 06/08/17 00:00 (Benadryl) 25 mg Q6H PRN PO 06/08/17 00:00 (Zofran Inj) 4 mg Q6H PRN IVP 06/08/17 00:00 Miscellaneous Information ALL NURSING DEPARTME... UNSCH PRN .XX 06/08/17 00:15 06/09/17 00:14 Assessment/Plan Problem List: (1) Ruptured ectopic ICD Codes: O00.90 - Unspecified ectopic without intrauterine Status: Acute Assessment and Plan 26 y/o @ ~ 8 weeks w/ most prob ruptured ectopic preg. condition d/w pt. dx lap, possible ex lap, possible salpingect/salpingostomy, possible oophorectomy d/w pt. risk/benefits and alternatives d/w pt. pt. give verbal understanding and consent w/ u/s tech as witness. pt. to go to or w/ letty leyva. d/w letty leyva. Discharge Planning doing well Hadley De La Rosa MD Jun 08, 2017 08:19
--- NOTE | 2017-06-08 08:22 | HHI.DS ---
Admission Date Jun 07, 2017 at 21:32 Discharge Date: Jun 08, 2017 Admitting Diagnosis Ruptured ectopic Diagnosis: Brief History pt. is a 26 y/o @ ~ 8 weeks present w/ c/o abdom pain. pt. states thru out day has been having severe abdominal pain that has worsened thruout the day. pt. states she also was passing out and had had time staying awake. pt. denies sob/cp, no fever/chills. seen in ed and have u/s show free blood in abdomen and pelvis. Hospital Course post ectopic . Right salpingectomy Pt Condition on Discharge: Good Discharge Disposition: Discharge Home Discharge Instructions Diet Instructions: As Tolerated, No Restrictions Activities You Can Perform: Pelvic Rest Activities to Avoid: Driving for 24 hrs Follow up Referrals: [facility] HELPER - 2 Weeks @ [facility] with Hadley De La Rosa MD New Medications: Oxycodone HCl/Acetaminophen (Oxycodone-Acetaminophen 5-325) 5 Mg-325 Mg Tablet 1 TAB PO Q4H PRN for PAIN SCALE 1 TO 5, #30 TAB Hadley De La Rosa MD Jun 08, 2017 08:22
--- NOTE | 2017-06-08 08:41 | MP ---
cc: Hadley De La Rosa MD DATE OF OPERATION: 06/07/2017 PROCEDURE PERFORMED: Operative laparoscopy with right salpingectomy for ectopic . PREOPERATIVE DIAGNOSIS: Right ectopic , ruptured. POSTOPERATIVE DIAGNOSIS: Right ectopic , ruptured. SURGEON: Hadley De La Rosa MD ESTIMATED BLOOD LOSS: 100 milliliters during the surgery and 1000 milliliters hemoperitoneum. COMPLICATIONS: None. FINDINGS: Right ectopic , with large hemoperitoneum. ANESTHESIA: Dr. Story general. PROCEDURE IN DETAIL: After informed consent, the patient taken to the operating room, where she was placed under general anesthesia, placed in supine position, legs in the [facility] stirrups. Abdomen, perineum and vagina were prepped and draped in normal sterile fashion. Meade catheter was placed to gravity along with a uterine manipulator, acorn type. After this was placed, gloves were changed. A 5 millimeter infraumbilical incision was then made, carried sharply into the abdominal cavity. We placed the trocar umbilical and then we placed a trocar suprapubic, 10 millimeter size and a 5 millimeter in the left lower quadrant. We evacuated blood, raised the uterus and the right ectopic was seen bleeding from a ruptured ectopic. Harmonic scalpel was used to obtain hemostasis once the Harmonic scalpel was used and hemostasis was achieved. The fallopian tube was removed by coming across the mesosalpinx until we completely amputated the fallopian tube. Once the fallopian tube was amputated, all of the blood was freed from the abdomen. This was done without difficulty. Using a large suction curette, we irrigated the pelvis from all blood at the end of the procedure. The ectopic had been removed from the abdomen to the 10 millimeter trocar. The uterus was normal. Both ovaries were normal. The left fallopian tube was normal. All instruments were removed from the abdomen after all blood was evacuated and the patient was taken to the recovery room in stable condition. Intraoperative hemoglobin was 10, done with a blood gas machine. The patient was in stable condition. She will be taken to a postop floor. MD JONATHON Novak/CHRISTIANO , 11:47 PM , 12:22 AM
[2017-06-08] MEDS ORDERED: SODIUM CHLORIDE 0.9% FLUSH 10 ML FLUSH IV FLUSH SCH (09:00)
== END 2017-06-08 11:18 | disposition home or self-care (01) ==
LOC: NEPD 18:06 → INTOOBSV 21:32 → NEDA 21:32 → HPAC 22:36 → H1EA 06-08 01:16
PROVIDERS: ADMIT Obstetrics & Gynecology; ATTEND Obstetrics & Gynecology
DX: O00.101 Right tubal pregnancy without intrauterine pregnancy (principal); K66.1 Hemoperitoneum; E86.0 Dehydration; F31.9 Bipolar disorder, unspecified; Z72.0 Tobacco use
CPT/HCPCS: 00840; 36430; 59151; 76700; 80053; 82805; 83605; 83735; 84702; 84703; 85025; 86850; 86900; 86901; 86920; 87040; 88305; 93005; 96361; 96374; 99285; J0330; J0690; J2250; J2370; J2405; J3010; J7030; J7050; J7120; P9016; G0378; J2175

== ENCOUNTER 2017-06-10 19:31 | Inpatient (IN) | payer MEDICAID ==
[~2017-06-10] VITALS: Ht 172.7 cm; Wt 61.9 kg
[~2017-06-10 19:31] MED LIST changes: -LACTATED RINGER'S 1000 ML INJ 2,000 ML IV ONE; -LIDOCAINE HCL 1% PF 5 ML SYRINGE OTHER ONE; -PHENYLEPH/NS 1000 MCG/10 ML SYR IV ONE; -PHENYLEPHRINE HCL 10 MG/ML VIAL IV ONE; -PROPOFOL 200 MG/20 ML AMP IV ONE; -ROCURONIUM INJ 50 MG/5 ML SYRINGE IV PUSH ONE; -SODIUM CHLOR 0.9% 250 ML INJ 250 ML IV ONE; -SODIUM CHLORIDE 0.9% 20 ML VIAL IV ONE; -STERILE WATER FOR INJECTION 20 ML VIAL IV ONE; -SUCCINYLCHOLINE CHLORIDE 200 MG/10 ML VIAL IV ONE; -ceFAZolin INJ 1,000 MG VIAL IV ONE
[2017-06-10 20:10] VITALS: BP 99/58; PULSE 72; RESP 14; TEMP 99.7; O2SAT 100
[2017-06-10] MEDS ORDERED: SODIUM CHLOR 0.9% 1000 ML INJ 1,000 ML IV ONE (20:26)
[2017-06-10] MEDS ORDERED: SODIUM CHLOR 0.9% 1000 ML INJ 800 ML IV ONE (20:26)
--- NOTE | 2017-06-10 20:39 | PD ---
HPI Chief Complaint: General Weakness Time Seen by Provider: 20:17 Travel History International Travel<30 days: No Contact w/Intl Traveler<30days: No Traveled to known affect area: No History of Present Illness HPI Patient is a 26-year-old female presenting with her mother for evaluation of generalized weakness. Patient had a ruptured ectopic and is status post laparoscopic right salpingectomy. She had this performed on June 08 at night. Mother states that she was discharged on Sunday. Since then she has been weak, dizzy when she ambulates, short of breath when she ambulates. Patient states that she still has vaginal bleeding, she is soaking 3 -4 pads a day. Patient denies any nausea, vomiting, fever, chills, headache. She does report suprapubic abdominal cramping. Symptom onset was gradual, symptom severity is moderate. Symptoms are exacerbated with movement. Patient took Percocet 2 hours prior to arrival. History of present illness is mostly obtained from mother as patient is very drowsy. PFSH Past Medical History ADHD: Yes Bipolar Disorder: Yes Depression: Yes Endocrine: No Reproductive: Yes (Ectopic ) ?: Not Menopausal: No : 3 Para: 2 Miscarriage: 1 : 0 Ectopic : Yes Past Surgical History Gynecologic Surgery: Yes (Salpingectomy) Social History Alcohol Use: No Tobacco Use: Yes Substance Use: Yes (hx. marijuana; denies current use) Allergies-Medications (Allergen,Severity, Reaction): Coded Allergies: No Known Allergies (Verified Allergy, Unknown, 06/10/17) Reported Meds & Prescriptions Reported Meds & Active Scripts Active Oxycodone-Acetaminophen 5-325 (Oxycodone HCl/Acetaminophen) 5 Mg-325 Mg Tablet 1 Tab PO Q4H PRN Review of Systems Except as stated in HPI: all other systems reviewed are Neg General / Constitutional: No: Fever, Chills HENT: Positive: Lightheadedness, No: Headaches Cardiovascular: No: Chest Pain or Discomfort Respiratory: Positive: Shortness of Breath Gastrointestinal: Positive: Abdominal Pain, No: Nausea, Vomiting Genitourinary: No: Dysuria Musculoskeletal: No: Myalgias Neurologic: Positive: Weakness, Dizziness Physical Exam Narrative GENERAL: Thin, well-developed, drowsy -[place] female. Presenting in no acute distress. SKIN: Warm and dry. HEAD: Atraumatic. Normocephalic. EYES: Pupils equal and round. No scleral icterus. No injection or drainage. ENT: No nasal bleeding or discharge. Mucous membranes pink and moist. NECK: Trachea midline. No JVD. CARDIOVASCULAR: Regular rate and rhythm. RESPIRATORY: No accessory muscle use. Clear to auscultation. Breath sounds equal bilaterally. GASTROINTESTINAL: Abdomen soft, mildly tender in suprapubic region, nondistended. Hepatic and splenic margins not palpable. Positive bowel sounds, no rebound, no guarding MUSCULOSKELETAL: Extremities without clubbing, cyanosis, or edema. No obvious deformities. NEUROLOGICAL: Drowsy but arousable. No obvious cranial nerve deficits. Motor grossly within normal limits. Five out of 5 muscle strength in the arms and legs. Normal speech. Data Data Last Documented VS Vital Signs Date Time Temp Pulse Resp B/P (MAP) Pulse Ox O2 Delivery O2 Flow Rate FiO2 06/10/17 21:06 100 Room Air 06/10/17 20:10 99.7 72 14 99/58 (72) Orders Orders Complete Blood Count With Diff (06/10/17 20:26) Comprehensive Metabolic Panel (06/10/17 20:26) Prothrombin Time / Inr (Pt) (06/10/17 20:26) Act Partial Throm Time (Ptt) (06/10/17 20:26) Magnesium (Mg) (06/10/17 20:26) Urinalysis - C+S If Indicated (06/10/17 20:26) Chest, Single Ap (06/10/17 20:26) Blood Glucose (06/10/17 20:26) Ecg Monitoring (06/10/17 20:26) Iv Access Insert/Monitor (06/10/17 20:26) Oximetry (06/10/17 20:26) Oxygen Administration (06/10/17 20:26) Sodium Chlor 0.9% 1000 Ml Inj (Ns 1000 M (06/10/17 20:26) Sodium Chlor 0.9% 1000 Ml Inj (Ns 1000 M (06/10/17 20:26) Red Blood Cells (Rbc) (06/10/17 21:59) Type And Screen (06/10/17 21:59) Admit Order (Ed Use Only) (06/10/17 22:22) Labs Laboratory Tests Test 06/10/17 20:55 White Blood Count 6.3 TH/MM3 Red Blood Count 2.25 MIL/MM3 Hemoglobin 7.0 GM/DL Hematocrit 20.1 % Mean Corpuscular Volume 89.3 FL Mean Corpuscular Hemoglobin 31.0 PG Mean Corpuscular Hemoglobin Concent 34.7 % Red Cell Distribution Width 13.6 % Platelet Count 213 TH/MM3 Mean Platelet Volume 7.7 FL Neutrophils (%) (Auto) 57.7 % Lymphocytes (%) (Auto) 35.0 % Monocytes (%) (Auto) 6.4 % Eosinophils (%) (Auto) 0.5 % Basophils (%) (Auto) 0.4 % Neutrophils # (Auto) 3.6 TH/MM3 Lymphocytes # (Auto) 2.2 TH/MM3 Monocytes # (Auto) 0.4 TH/MM3 Eosinophils # (Auto) 0.0 TH/MM3 Basophils # (Auto) 0.0 TH/MM3 CBC Comment DIFF FINAL Differential Comment Prothrombin Time 10.4 SEC Prothromb Time International Ratio 1.0 RATIO Activated Partial Thromboplast Time 21.6 SEC Blood Urea Nitrogen 7 MG/DL Creatinine 0.77 MG/DL Random Glucose 107 MG/DL Total Protein 5.7 GM/DL Albumin 2.8 GM/DL Calcium Level 8.2 MG/DL Magnesium Level 2.0 MG/DL Alkaline Phosphatase 48 U/L Aspartate Amino Transf (AST/SGOT) 21 U/L Alanine Aminotransferase (ALT/SGPT) 21 U/L Total Bilirubin 0.3 MG/DL Sodium Level 144 MEQ/L Potassium Level 3.4 MEQ/L Chloride Level 109 MEQ/L Carbon Dioxide Level 29.0 MEQ/L Anion Gap 6 MEQ/L Estimat Glomerular Filtration Rate 111 ML/MIN MDM Medical Decision Making Medical Screen Exam Complete: Yes Emergency Medical Condition: Yes Medical Record Reviewed: Yes Interpretation(s) Vital Signs Date Time Temp Pulse Resp B/P (MAP) Pulse Ox O2 Delivery O2 Flow Rate FiO2 06/10/17 21:06 100 Room Air 06/10/17 21:06 100 Room Air 06/10/17 21:06 100 06/10/17 20:10 99.7 72 14 99/58 (72) 100 Laboratory Tests Test 06/10/17 20:55 White Blood Count 6.3 TH/MM3 Red Blood Count 2.25 MIL/MM3 Hemoglobin 7.0 GM/DL Hematocrit 20.1 % Mean Corpuscular Volume 89.3 FL Mean Corpuscular Hemoglobin 31.0 PG Mean Corpuscular Hemoglobin Concent 34.7 % Red Cell Distribution Width 13.6 % Platelet Count 213 TH/MM3 Mean Platelet Volume 7.7 FL Neutrophils (%) (Auto) 57.7 % Lymphocytes (%) (Auto) 35.0 % Monocytes (%) (Auto) 6.4 % Eosinophils (%) (Auto) 0.5 % Basophils (%) (Auto) 0.4 % Neutrophils # (Auto) 3.6 TH/MM3 Lymphocytes # (Auto) 2.2 TH/MM3 Monocytes # (Auto) 0.4 TH/MM3 Eosinophils # (Auto) 0.0 TH/MM3 Basophils # (Auto) 0.0 TH/MM3 CBC Comment DIFF FINAL Differential Comment Prothrombin Time 10.4 SEC Prothromb Time International Ratio 1.0 RATIO Activated Partial Thromboplast Time 21.6 SEC Blood Urea Nitrogen 7 MG/DL Creatinine 0.77 MG/DL Random Glucose 107 MG/DL Total Protein 5.7 GM/DL Albumin 2.8 GM/DL Calcium Level 8.2 MG/DL Magnesium Level 2.0 MG/DL Alkaline Phosphatase 48 U/L Aspartate Amino Transf (AST/SGOT) 21 U/L Alanine Aminotransferase (ALT/SGPT) 21 U/L Total Bilirubin 0.3 MG/DL Sodium Level 144 MEQ/L Potassium Level 3.4 MEQ/L Chloride Level 109 MEQ/L Carbon Dioxide Level 29.0 MEQ/L Anion Gap 6 MEQ/L Estimat Glomerular Filtration Rate 111 ML/MIN Differential Diagnosis Symptomatic anemia versus metabolic abnormality versus medication side effect versus other Narrative Course Patient is a 26-year-old female presenting to the emergency room for evaluation of weakness, dizziness and shortness of breath. Patient is status post right appendectomy on the due to a ruptured ectopic . She has been having vaginal bleeding since that time. Patient is hypotensive on arrival however upon review of medical records that appears to be more her normal. Labs and imaging ordered and pending. IV fluids ordered. CBC with a hemoglobin of 7.0/20.1, this has trended down since June 08 when she was transfused 2 units of packed red blood cells for hemoglobin of 7.6. Chemistry with a potassium of 3.4 Chest x-ray shows no acute disease Patient will be transfused 2 units of packed red blood cells. Discussed findings with OB hospitalist, he stated that the patient needed to be admitted for blood transfusion patient can be admitted to medicine. He stated that the vaginal bleeding is normal. Patient is setting the lining of her uterus. Patient was admitted to OB, Dr. Conner. Admit orders placed. family aware. Diagnosis Primary Impression: Symptomatic anemia Additional Impressions: Vagina bleeding Hypokalemia Admitting Information Admitting Physician Requests: Admit Condition: Stable Marietta Chamorro Jun 10, 2017 20:39
[2017-06-10 21:06] VITALS: O2SAT 100
--- NOTE | 2017-06-10 21:16 | RADRPT ---
EXAM DATE/TIME: 06/10/2017 21:00 [facility] COMPARISON: No previous studies available for comparison. INDICATIONS : Fever. MEDICAL HISTORY : Depression Bipolar ADHD SURGICAL HISTORY : Dermoid cyst removed from left ovary ENCOUNTER: Initial ACUITY: 1 day PAIN SCORE: Non-responsive. LOCATION: Bilateral chest FINDINGS: A single view of the chest demonstrates the lungs to be symmetrically aerated without evidence of mas s, infiltrate or effusion. The cardiomediastinal contours are unremarkable. Osseous structures are intact. CONCLUSION: The lungs are clear. Cale James MD on June 10, 2017 at 21:14 Board Certified Radiologist. This report was verified electronically.
[2017-06-10 21:32] LABS: AUTOMATED NEUTROPHIL # 3.6 TH/MM3 (1.8-7.7); BASOPHIL % 0.4 % (0.0-2.0); EOSINOPHIL % 0.5 % (0.0-4.0); LYMPHOCYTE # 2.2 TH/MM3 (1.0-4.8); MEAN CELL VOLUME 89.3 FL (80.0-100.0); MEAN CORPUSCULAR HGB CONC 34.7 % (32.0-36.0); MEAN PLATELET VOLUME 7.7 FL (7.0-11.0); MONO % 6.4 % (0.0-8.0); MONOCYTE # 0.4 TH/MM3 (0-0.9); NEUT % 57.7 % (16.0-70.0); PLATELET COUNT 213 TH/MM3 (150-450); RED BLOOD COUNT 2.25 MIL/MM3 (4.00-5.30); RED CELL DISTRIBUTION WIDTH 13.6 % (11.6-17.2); WHITE BLOOD COUNT 6.3 TH/MM3 (4.0-11.0)
[2017-06-10 21:48] LABS: PROTHROMBIN TIME - PATIENT 10.4 SEC (9.8-11.6)
[2017-06-10 21:54] LABS: ALBUMIN 2.8 GM/DL (3.4-5.0); ALKALINE PHOSPHATASE 48 U/L (45-117); ALT (GPT) 21 U/L (10-53); AST (GOT) 21 U/L (15-37); BLOOD UREA NITROGEN 7 MG/DL (7-18); CALCIUM 8.2 MG/DL (8.5-10.1); CHLORIDE 109 MEQ/L (98-107); CREATININE 0.77 MG/DL (0.50-1.00); GLOMERULAR FILTRATION RATE 111 ML/MIN (>89); GLUCOSE,RANDOM 107 MG/DL (74-106); SODIUM (NA) 144 MEQ/L (136-145); TOTAL BILIRUBIN ADULT 0.3 MG/DL (0.2-1.0); TOTAL PROTEIN 5.7 GM/DL (6.4-8.2)
[2017-06-10 21:56] LABS: HEMATOCRIT 20.1 % (35.0-46.0)
[2017-06-10] MEDS ORDERED: BISACODYL 10 MG SUPP RECTAL PRN (23:15)
[2017-06-10] MEDS ORDERED: SODIUM CHLORIDE 0.9% FLUSH 10 ML FLUSH IV FLUSH PRN (23:15)
[2017-06-10] MEDS ORDERED: SENNOSIDES 8.6 MG TAB PO PRN (23:15)
[2017-06-10] MEDS ORDERED: MAGNESIUM HYDROXIDE SUSP 30 ML CUP PO PRN (23:15)
[2017-06-10] MEDS ORDERED: NALOXONE HCL 0.4 MG/ML AMP IV PUSH PRN (23:15)
[2017-06-10] MEDS ORDERED: ZOLPIDEM TARTRATE 5 MG TAB PO PRN (23:15)
[2017-06-10] MEDS ORDERED: LACTULOSE SYRUP 20 GM/30 ML CUP PO PRN (23:15)
[2017-06-10] MEDS ORDERED: SODIUM CHLOR 0.9% 250 ML INJ 250 ML IV ONE (23:15)
--- NOTE | 2017-06-10 23:29 | HHI.HP ---
HPI Chief Complaint Weakness (Colin Alanis MD R1) Travel History International Travel<30 Days: No Contact w/Intl Traveler<30Days: No Known Affected Area: No (Colin Alanis MD) History of Present Illness HPI Patient is a 26-year-old with recent laparoscopy with right salpingectomy for ruptured ectopic who presents today for weakness. She states she has had weakness since yesterday. She had been discharged from the hospital the day prior. She states she has had vaginal bleeding, more than a normal menstrual period, with clots since her procedure. Also endorses headache, lightheadedness, dizziness, increased thirst. No other abnormal colored or malodorous discharge. Notes a dull central abdominal pain. Reports she has been eating and drinking well. Denies nausea, vomiting, fever, chills, dysuria , frequency, change in urine color/smell, chest pain, shortness of breath. Para: 2 : 5 Miscarriage: 2 (Colin Alanis MD) History Past Medical History Medical History: Denies Significant Hx (Colin Alanis MD) Obstetric History Obstetric History laparoscopy with right salpingectomy for ectopic at 8 weeks on 06/07/17 (Colin Alanis MD) Past Surgical History Narrative Surgical laparoscopy with right salpingectomy for ectopic Dermoid cyst removal 03/18 (Colin Alanis MD) Family History Family History: Negative (Colin Alanis MD) Social History Alcohol Use: No Tobacco Use: Yes (~1/4 PPD) Substance Abuse: No (Colin Alanis MD) Allergies-Medications (Allergen,Severity, Reaction): Coded Allergies: No Known Allergies (Verified Allergy, Unknown, 06/10/17) Home Meds Active Scripts Oxycodone HCl/Acetaminophen (Oxycodone-Acetaminophen 5-325) 5 Mg-325 Mg Tablet, 1 TAB PO Q4H Y for PAIN SCALE 1 TO 5, #30 TAB Prov:Hadley De La Rosa MD 06/08/17 Discontinued Scripts Oxycodone HCl/Acetaminophen (Oxycodone-Acetaminophen 5-325) 5 Mg-325 Mg Tablet, 1 TAB PO Q4H Y for pain, #30 TAB 0 Refills Prov:Hadley De La Rosa MD 03/13/17 Review of Systems General / Constitutional: No: Fever, Chills Eyes: No: Diploplia, Blurred Vision, Visual changes HENT: Headaches, Lightheadedness Cardiovascular: No: Irregular Rhythm, Chest Pain or Discomfort Respiratory: No: Cough, Short of Breath, Wheezing Gastrointestinal: Abdominal Pain, No: Nausea, Vomiting, Diarrhea, Hematemesis, Constipation Genitourinary: Vaginal Bleeding, No: Urgency, Frequency, Dysuria, Hematuria, Discharge Musculoskeletal: No: Limited ROM, Weakness Skin: No Rash, No Itching Neurologic: Weakness, Dizziness Psychiatric: No: Anxiety, Depression Endocrine: No: Polydipsia, Polyuria Hematologic/Lymphatic: No Easy Bruising, No Lymph Node Enlargement (Colin Alanis MD R1) Physical Exam Vital Signs Date Time Temp Pulse Resp B/P (MAP) Pulse Ox O2 Delivery O2 Flow Rate FiO2 06/10/17 21:06 100 Room Air 06/10/17 21:06 100 Room Air 06/10/17 21:06 100 06/10/17 20:10 99.7 72 14 99/58 (72) 100 Narrative GENERAL: Well-nourished, well-developed patient. Quiet speech, responds with short sentences SKIN: Warm and dry. HEAD: Normocephalic and atraumatic. EYES: No scleral icterus. No injection or drainage. Conjunctival pallor ENT: No nasal drainage noted. Mucous membranes moist. Airway patent. NECK: Supple, trachea midline. No JVD. CARDIOVASCULAR: Regular rate and rhythm without murmurs, gallops, or rubs. RESPIRATORY: Breath sounds equal bilaterally. No accessory muscle use. BREASTS: Bilateral exam showed no masses , no retractions, no nipple discharge. ABDOMEN/GI: Abdomen soft, central tenderness, b/l tenderness noted to be referred to suprapubic region, bowel sounds present, no rebound, no guarding EXTREMITIES: No cyanosis or edema. BACK: Nontender without obvious deformity. No CVA tenderness. NEUROLOGICAL: Awake and alert. Motor and sensory grossly within normal limits. Five out of 5 muscle strength in all muscle groups. Normal speech. (Colin Alanis MD R1) Caprini VTE Risk Assessment Caprini VTE Risk Assessment: No/Low Risk (score <= 1) (Colin Alanis MD R1) Data Data Orders Orders Complete Blood Count With Diff (06/10/17 20:26) Comprehensive Metabolic Panel (06/10/17 20:26) Prothrombin Time / Inr (Pt) (06/10/17 20:26) Act Partial Throm Time (Ptt) (06/10/17 20:) Magnesium (Mg) (06/10/17 20:) Urinalysis - C+S If Indicated (06/10/17 20:26) Chest, Single Ap (06/10/17 20:26) Blood Glucose (06/10/17 20:26) Ecg Monitoring (06/10/17:) Iv Access Insert/Monitor (06/10/17 20:) Oximetry (06/10/17 20:) Oxygen Administration (06/10/17 20:) Sodium Chlor 0.9% 1000 Ml Inj (Ns 1000 M (06/10/17 20:26) Sodium Chlor 0.9% 1000 Ml Inj (Ns 1000 M (06/10/17 20:26) Red Blood Cells (Rbc) (06/10/17 21:59) Type And Screen (06/10/17 21:59) Admit Order (Ed Use Only) (06/10/17 22:22) Labs Laboratory Tests Test 06/10/17 20:55 White Blood Count 6.3 Red Blood Count 2.25 Hemoglobin 7.0 Hematocrit 20.1 Mean Corpuscular Volume 89.3 Mean Corpuscular Hemoglobin 31.0 Mean Corpuscular Hemoglobin Concent 34.7 Red Cell Distribution Width 13.6 Platelet Count 213 Mean Platelet Volume 7.7 Neutrophils (%) (Auto) 57.7 Lymphocytes (%) (Auto) 35.0 Monocytes (%) (Auto) 6.4 Eosinophils (%) (Auto) 0.5 Basophils (%) (Auto) 0.4 Neutrophils # (Auto) 3.6 Lymphocytes # (Auto) 2.2 Monocytes # (Auto) 0.4 Eosinophils # (Auto) 0.0 Basophils # (Auto) 0.0 CBC Comment DIFF FINAL Differential Comment Prothrombin Time 10.4 Prothromb Time International Ratio 1.0 Activated Partial Thromboplast Time 21.6 Blood Urea Nitrogen 7 Creatinine 0.77 Random Glucose 107 Total Protein 5.7 Albumin 2.8 Calcium Level 8.2 Magnesium Level 2.0 Alkaline Phosphatase 48 Aspartate Amino Transf (AST/SGOT) 21 Alanine Aminotransferase (ALT/SGPT) 21 Total Bilirubin 0.3 Sodium Level 144 Potassium Level 3.4 Chloride Level 109 Carbon Dioxide Level 29.0 Anion Gap 6 Estimat Glomerular Filtration Rate 111 (Colin Alanis MD R1) Assessment/Plan Problem List: (1) Symptomatic anemia ICD Codes: D64.9 - Anemia, unspecified Status: Acute Plan: Patient is a 26-year-old with recent laparoscopy with right salpingectomy for ruptured ectopic on 06/07/17 who presented for weakness. Found to have hemoglobin of 7.0, hematocrit 20.1 as well as signs/ symptoms of anemia. Currently without S/S of systemic infection. - 2 units RBC - F/U H&H after transfusion - F/U abdominal US - Tylenol, Becker PRN pain - Iron PO 325 BID - Monitor for signs of infection - Monitor for signs of symptomatic hypovolemia (2) FEN Plan: Fluids: -tolerating p.o., however is weak on admission and will supplement with maintenance fluids at this time Electrolytes: -Monitor and replete as needed Nutrition: -Regular diet (Colin Alanis MD R1) Attending Attestation Patient seen and evaluated with resident under direct supervision, agree with assessment and plan. (Christiano Steve MD) Colin Alanis MD R1 Jun 10, 2017 23:29 Christiano Steve MD Jun 11, 2017 07:36
[2017-06-10 23:55] LABS: BACTERIA, URINE RARE /hpf; BILIRUBIN, URINE NEG (NEG); BLOOD, URINE LARGE (NEG); GLUCOSE,URINE NEG (NEG); KETONE, URINE NEG (NEG); MUCUS URINE FEW /lpf (OCC); NITRITE,URINE NEG (NEG); SQUAMOUS EPITHELIAL CELL URINE 6 /hpf (0-5); URINE COLOR LIGHT-RED (YELLW/STRAW); URINE LEUKOCYTE ESTERASE SMALL (NEG); WHITE BLOOD CELL CLUMPS MANY
[2017-06-11] VITALS (13 sets, daily range): BP systolic 84–112; BP diastolic 50–68; PULSE 54–84; RESP 12–20; TEMP 96–98.7; O2SAT 99–100
[2017-06-11] MEDS ORDERED: SODIUM CHLOR 0.9% 250 ML INJ 250 ML IV ONE (00:15)
[2017-06-11] MEDS: SODIUM CHLOR 0.9% 1000 ML INJ 1,000 ML IV SCH ×3 (01:20→21:45)
--- NOTE | 2017-06-11 02:18 | RADRPT ---
EXAM DATE/TIME: 06/11/2017 01:05 [facility] COMPARISON: US PELVIS - COMPLETE (INTRAMURAL DIRECTOR,NON-PREG), November 09, 2014, 18:36. INDICATIONS : Bleeding and pain s/p right salpingectomy. MEDICAL HISTORY : . Ectopic . ADHD. Bipolar disorder. Depression. Blood transfusion. SURGICAL HISTORY : Right salpingectomy 06/08/17. ENCOUNTER: Subsequent ACUITY: 1 day PAIN SCORE: 9/10 LOCATION: Bilateral pelvis MEASUREMENTS: UTERUS: 8.6 x 6.0 x 4.1 cm ENDOMETRIAL STRIPE: 7 mm RIGHT OVARY: 3.5 x 2.7 x 1.8 cm LEFT OVARY: 3.7 x 1.9 x 1.9 cm FINDINGS: UTERUS: The myometrium has homogeneous echotexture without mass. RIGHT OVARY: Ovary contains no mass or significant cystic lesion. LEFT OVARY: Ovary contains no mass or significant cystic lesion. MISCELLANEOUS: No free fluid. CONCLUSION: Normal examination. Cale Desai Jr., MD on June 11, 2017 at 2:15 Board Certified Radiologist. This report was verified electronically.
[2017-06-11 07:07] LABS: HEMOGLOBIN 8.5 GM/DL (11.6-15.3); MEAN CELL VOLUME 88.1 FL (80.0-100.0); MEAN CORPUSCULAR HEMOGLOBIN 31.3 PG (27.0-34.0); MEAN CORPUSCULAR HGB CONC 35.5 % (32.0-36.0); MEAN PLATELET VOLUME 7.9 FL (7.0-11.0); PLATELET COUNT 164 TH/MM3 (150-450); RED BLOOD COUNT 2.73 MIL/MM3 (4.00-5.30); RED CELL DISTRIBUTION WIDTH 14.5 % (11.6-17.2); WHITE BLOOD COUNT 5.7 TH/MM3 (4.0-11.0)
[2017-06-11 07:38] LABS: BICARBONATE 26.5 MEQ/L (21.0-32.0); BLOOD UREA NITROGEN 7 MG/DL (7-18); CHLORIDE 114 MEQ/L (98-107); CREATININE 0.55 MG/DL (0.50-1.00); GLUCOSE,RANDOM 80 MG/DL (74-106); SODIUM (NA) 146 MEQ/L (136-145)
[2017-06-11 08:03] LABS: CALCIUM 8.1 MG/DL (8.5-10.1)
[2017-06-11] MEDS: SODIUM CHLORIDE 0.9% FLUSH 10 ML FLUSH IV FLUSH SCH ×2 (08:29→21:42)
--- NOTE | 2017-06-11 08:30 | HHI.FPPN ---
Subjective Remarks Patient states that she still feels weak. She endorses dizziness, headache, and vaginal bleeding overnight. She is not having a chest pain. She was very sleepy during the exam so its hard to gauge if she really does not feel any better. She states that she would try to eat something today. Objective Vitals Vital Signs Date Time Temp Pulse Resp B/P (MAP) Pulse Ox O2 Delivery O2 Flow Rate FiO2 06/11/17 08:20 98.0 54 20 97/56 (70) 100 06/11/17 04:00 98.2 55 18 102/60 (74) 99 06/11/17 03:04 97.9 62 12 107/51 06/11/17 02:48 60 12 112/54 99 06/11/17 02:11 97.2 70 14 101/53 100 06/11/17 02:00 97.3 57 18 101/53 (69) 99 06/11/17 01:17 77 18 106/65 (79) 100 06/11/17 01:11 77 18 93/51 100 06/11/17 00:49 84 18 91/55 100 06/11/17 00:44 98.7 78 18 98/50 100 06/10/17 21:06 100 Room Air 06/10/17 21:06 100 Room Air 06/10/17 21:06 100 06/10/17 20:10 99.7 72 14 99/58 (72) 100 I/O 06/10/17 06/10/17 06/10/17 06/11/17 06/11/17 06/11/17 07:00 15:00 23:00 07:00 15:00 23:00 Intake Total 1030 ml Balance 1030 ml Intake IV Total 100 ml Packed Cells 800 ml Blood Product IV Normal Saline Flush 130 ml # Voids 2 Result Diagram: 06/11/1723 06/11/17622 Imaging Last Impressions Pelvis Ultrasound 06/11/17 0000 Signed Impressions: Service Date/Time: Sunday, June 11, 2017 01:05 - CONCLUSION: Normal examination. Cale Desai Jr., MD Chest X-Ray 06/10/172025 Signed Impressions: Service Date/Time: Saturday, June 10, 2017 21:00 - CONCLUSION: The lungs are clear. Cale James MD Objective Remarks GENERAL: Well-developed patient AAF SKIN: Warm and dry. HEAD: Normocephalic and atraumatic. EYES: No scleral icterus. No injection or drainage. ENT: No nasal drainage noted. Mucous membranes moist. Airway patent. Pale MM NECK: Supple, trachea midline. No JVD. Non-tender anterior cervical lymphadenopathy CARDIOVASCULAR: Regular rate and rhythm without murmurs, gallops, or rubs. RESPIRATORY: Breath sounds equal bilaterally. No accessory muscle use. ABDOMEN/GI: Abdomen soft, diffuse abdominal tenderness but more central, bowel sounds present, no rebound, moderate guarding EXTREMITIES: No cyanosis or edema. NEUROLOGICAL: Sleepy. Motor and sensory grossly within normal limits. Normal speech. A/P Assessment and Plan Patient is a 26-year-old with recent right laparoscopic salpingectomy for ruptured ectopic on 06/07/17 who presented for weakness. Found to have hemoglobin of 7.0, hematocrit 20.1 as well as signs/symptoms of anemia. Currently without S/S of systemic infection. - S/P 2 units RBC - H&H after transfusion - Repeat H/H at noon. Reevaluate for clinical improvement at that time - US showed a normal-sized endometrium with homogeneous echotexture without mass ; endometrial stripe wnl at 7mm; no free pelvic fluid - Tylenol, Pendroy PRN pain - Iron PO 325 BID - Monitor for signs of infection - Monitor for signs of symptomatic hypovolemia FEN -Continue maintenance fluids at this time at rate of 90mls/hr Electrolytes: -Monitor and replete as needed Nutrition: -Regular diet Incentive spirometer PT consult for OOB Discharge Planning DC appropriate when clinical improvement in weakness, possibly later today More Hernandez MD Jun 11, 2017 08:30
[2017-06-11] MEDS: ACETAMINOPHEN 325 MG TAB PO PRN ×2 (08:31→18:23)
[2017-06-11] MEDS: FERROUS SULFATE 325 MG (65 MG ELEMENTAL IRON) TAB PO SCH ×2 (08:31→21:42)
[2017-06-11] MEDS: DOCUSATE SODIUM 50 MG/SENNA 8.6 MG TAB PO SCH ×2 (08:32→21:42)
[2017-06-11] MEDS: ACETAMINOPHEN/HYDROcodone 325 MG/5 MG TAB PO PRN (12:10)
[2017-06-11 14:11] LABS: HEMATOCRIT 23.4 % (35.0-46.0); HEMOGLOBIN 8.1 GM/DL (11.6-15.3)
--- NOTE | 2017-06-11 15:41 | HHI.FPPN ---
Addendum to progress note ADDENDUM Reason for addendum: Additonal documentation Additional information S: Checked on Ms Arredondo at 1530. She still feels very weak and could only get up to use the bedside commode. She did not eat breakfast and is not interested in lunch. I spoke with her about eating dinner and she agreed to try a boost with every meal. Nurse at bedside did not observe any vaginal bleeding. O: Lungs CTAB, Abd waste machine tender but pain improved, H/H at 13:05 stable at 8.1/ 23.4 compared to 8.5/24 at 0600 A/P: Ms Arredondo is not ready for discharge. She will stay another day. Encourage PO intake and OOB. repeat H/H at 210; morning labs in the am WDW More Corral MD Jun 11, 2017 15:41
[2017-06-11 21:39] LABS: HEMATOCRIT 25.6 % (35.0-46.0); HEMOGLOBIN 8.9 GM/DL (11.6-15.3)
[2017-06-12 01:22] VITALS: BP 92/55; PULSE 63; RESP 20; TEMP 97.7; O2SAT 100
[2017-06-12] MEDS: ACETAMINOPHEN/HYDROcodone 325 MG/5 MG TAB PO PRN (02:18)
[2017-06-12 05:55] VITALS: BP 98/57; PULSE 53; RESP 20; TEMP 97.9; O2SAT 100
[2017-06-12 07:46] VITALS: BP 100/60; PULSE 57; RESP 18; TEMP 98.3; O2SAT 100
[2017-06-12 08:14] LABS: HEMOGLOBIN 8.9 GM/DL (11.6-15.3); MEAN CELL VOLUME 89.3 FL (80.0-100.0); MEAN CORPUSCULAR HEMOGLOBIN 31.7 PG (27.0-34.0); MEAN CORPUSCULAR HGB CONC 35.4 % (32.0-36.0); MEAN PLATELET VOLUME 7.9 FL (7.0-11.0); PLATELET COUNT 205 TH/MM3 (150-450); RED CELL DISTRIBUTION WIDTH 14.4 % (11.6-17.2); WHITE BLOOD COUNT 6.5 TH/MM3 (4.0-11.0)
[2017-06-12] MEDS: DOCUSATE SODIUM 50 MG/SENNA 8.6 MG TAB PO SCH (08:33)
[2017-06-12] MEDS: ACETAMINOPHEN 325 MG TAB PO PRN (08:34)
[2017-06-12] MEDS: FERROUS SULFATE 325 MG (65 MG ELEMENTAL IRON) TAB PO SCH (08:34)
[2017-06-12] MEDS: SODIUM CHLORIDE 0.9% FLUSH 10 ML FLUSH IV FLUSH SCH (08:35)
[2017-06-12 08:44] LABS: BICARBONATE 26.3 MEQ/L (21.0-32.0); CALCIUM 7.1 MG/DL (8.5-10.1); CREATININE 0.63 MG/DL (0.50-1.00)
--- NOTE | 2017-06-12 08:45 | HHI.FPPN ---
Subjective Remarks Patient is doing much better this morning. She ate dinner last night and has already ordered breakfast for this morning. She got up multiple times to use the bathroom. She denies fever, chest pain, shortness of breath, and her stomach pain is much improved. She does not feel weak anymore and wants to go home. Objective Vitals Vital Signs Date Time Temp Pulse Resp B/P (MAP) Pulse Ox O2 Delivery O2 Flow Rate FiO2 06/12/17 07:46 98.3 57 18 100/60 (73) 100 06/12/17 05:55 97.9 53 20 98/57 (71) 100 06/12/17 03:19 18 06/12/17 01:22 97.7 63 20 92/55 (67) 100 06/11/17 22:10 97.7 75 20 89/50 (63) 100 06/11/17 17:01 96.0 59 20 96/64 (75) 99 06/11/17 13:18 98.5 58 20 84/51 (62) 100 06/11/17 13:18 97/68 (78) I/O 06/11/17 06/11/17 06/11/17 06/12/17 06/12/17 06/12/17 07:00 15:00 23:00 07:00 15:00 23:00 Intake Total 1030 ml 1040 ml Output Total 1 ml Balance 1030 ml 1040 ml -1 ml Intake Oral 240 ml IV Total 100 ml 800 ml Packed Cells 800 ml Blood Product IV Normal Saline Flush 130 ml Output Urine Total 1 ml # Voids 2 3 # Bowel Movements 1 Result Diagram: 06/12/17 0531 06/12/17 0531 Objective Remarks GENERAL: Well-developed patient AAF SKIN: Warm and dry. HEAD: Normocephalic and atraumatic. EYES: No scleral icterus. No injection or drainage. ENT: No nasal drainage noted. Mucous membranes moist. Airway patent. NECK: Supple, trachea midline. No JVD. CARDIOVASCULAR: Regular rate and rhythm without murmurs, gallops, or rubs. RESPIRATORY: Breath sounds equal bilaterally. No accessory muscle use. ABDOMEN/GI: Abdomen soft, mild tenderness to palpation, no guarding, bowel sounds present, no rebound EXTREMITIES: No cyanosis or edema. NEUROLOGICAL: AOx3. Motor and sensory grossly within normal limits. Normal speech. A/P Assessment and Plan Patient is a 26-year-old with recent right laparoscopic salpingectomy for ruptured ectopic on 06/07/17 who presented for weakness. Found to have hemoglobin of 7.0, hematocrit 20.1 as well as signs/symptoms of anemia. Currently without S/S of systemic infection. - S/P 2 units RBC on 06/11 - H&H stable at 8.9/25 this am - Tylenol, [place] PRN pain - Iron PO 325 BID - Monitor for signs of infection - Monitor for signs of symptomatic hypovolemia FEN -Oral fluids only - heplock IV, encourage PO fluid intake Electrolytes: -Monitor and replete as needed Nutrition: -Regular diet Incentive spirometer DW Dr. Joshi Discharge Planning Doing much better - discharge home today. More Hernandez MD Jun 12, 2017 08:45
[2017-06-12] MEDS ORDERED: FERR325T20 PO (08:47)
--- NOTE | 2017-06-12 08:48 | HHI.DCPOC ---
Discharge Care Plan Diagnosis: (1) Moderate recurrent major depression (2) Vagina bleeding (3) Symptomatic anemia Report Symptoms to Your Doctor -Temperature above 100.5 degrees -Redness, of incision or excessive or foul smelling drainage -Unusual pain or calf pain -Increased vaginal bleeding -Painful or difficulty urinating -Feelings of extreme sadness or anxiety after 2 weeks Goals to Promote Your Health * To prevent worsening of your condition and complications * To maintain your health at the optimal level Directions to Meet Your Goals Take your medications as prescribed Follow your dietary instruction Follow activity as directed Ensure plenty of rest for recovery Drink fluids for hydration Keep your appointments as scheduled Take your immunizations and boosters as scheduled If your symptoms worsen call your PCP, if no PCP go to Urgent Care Center or Emergency Room Smoking is Dangerous to Your Health. Avoid second hand smoke Call the 24-hour crisis hotline for domestic abuse at More Hernandez MD Jun 12, 2017 08:48
[2017-06-12 08:59] LABS: CALCIUM-PROTEIN CORRECTED 8.2 MG/DL (8.5-10.1)
== END 2017-06-12 10:04 | disposition home or self-care (01) | DRG 812 ==
LOC: NEPC 19:31 → NEDA 22:24 → N05B 06-11 01:41
PROVIDERS: ADMIT Obstetrics & Gynecology; ATTEND Obstetrics & Gynecology
PROC: 30233N1 Transfusion of Nonautologous Red Blood Cells into Peripheral Vein, Percutaneous Approach (ICD-10-PCS; principal; 2017-06-11)
DX: D64.9 Anemia, unspecified (principal); F33.1 Major depressive disorder, recurrent, moderate; N93.9 Abnormal uterine and vaginal bleeding, unspecified; Z98.890 Other specified postprocedural states; F17.210 Nicotine dependence, cigarettes, uncomplicated
CPT/HCPCS: 36430; 71045; 76856; 80048; 80053; 81001; 83735; 84155; 85014; 85018; 85025; 85027; 85610; 85730; 86850; 86900; 86901; 86920; 87086; 94150; 96360; G0378; J2175; J7030; J7050; J7120; P9016